=== PATIENT | male | born 1935 | race Caucasian/White ===

== ENCOUNTER 2017-10-08 10:18 | Inpatient (IN) | payer MEDICARE ==
[~2017-10-08] VITALS: Ht 167.6 cm; Wt 60.0 kg
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
--- NOTE | ~2017-10-08 | PN ---
PATIENT:STEPHEN PERDOMO MEDICAL RECORD: [id number] LOCATION:[facility] ADMISSION DATE: 10/08/17 PROGRESS NOTE DATE OF SERVICE: 10/11/2017 SUBJECTIVE: The patient's case was discussed with staff. He has no new complaint. OBJECTIVE: The patient is in good behavioral control with limited insight about his condition. He tolerates his medicines well. ASSESSMENT: No change in diagnoses. PLAN: Brief supportive and educational interventions were made. emt intermediate prognosis is guarded. TRANSINT:[id number] Voice Confirmation ID: [id number] DOCUMENT ID: [id number] XOCHITL MORELAND MD at 1304 CC: [id number] DICTATION DATE: 10/11/17 1224 AUTO DAMAGE ESTIMATOR: 10/11/17 1246 ADM IN [place] [id number] [place] [address]
--- NOTE | ~2017-10-08 | PN ---
PATIENT:STEPHEN PERDOMO MEDICAL RECORD: [id number] LOCATION:[facility] ADMISSION DATE: 10/08/17 PROGRESS NOTE DATE OF SERVICE: 10/16/2017 SUBJECTIVE: The patient's case was discussed with staff. He has no new complaint. OBJECTIVE: The patient denies intent to harm himself or others. He is fairly sedated. ASSESSMENT: No change in diagnoses. PLAN: Current medications have been reviewed and will be maintained. Long-term prognosis is guarded. TRANSINT:[id number] Voice Confirmation ID: [id number] DOCUMENT ID: [id number] XOCHITL MORELAND MD at 1344 CC: [id number] DICTATION DATE: 10/16/17 1430 SUPERVISOR PARK WORKERS: 10/16/17 1449 ADM IN [place] [address] [place] [address]
--- NOTE | ~2017-10-08 | PN ---
PATIENT:STEPHEN PERDOMO MEDICAL RECORD: [id number] LOCATION:[facility] ADMISSION DATE: 10/08/17 PROGRESS NOTE DATE OF SERVICE: 10/10/2017 SUBJECTIVE: The patient's case was discussed with staff. He has no new complaint. OBJECTIVE: The patient was tested by Dr. Christine Feng and scored a 13/30. He has very limited insight about his condition and is clearly quite advanced in his dementia. ASSESSMENT: No change in diagnoses. PLAN: The patient will be started on Aricept at a dose of 5 mg at bedtime. His long-term prognosis is guarded. TRANSINT:[id number] Voice Confirmation ID: [id number] DOCUMENT ID: [id number] XOCHITL MORELAND MD at 1147 CC: [id number] DICTATION DATE: 10/10/17 1510 OPERATIONS SUPPORT PROFESSIONALS: 10/10/17 1523 ADM IN [place] [id number] [place] [address]
--- NOTE | ~2017-10-08 | PN ---
PATIENT:STEPHEN PERDOMO MEDICAL RECORD: [id number] LOCATION:[facility] ADMISSION DATE: 10/08/17 PROGRESS NOTE DATE OF SERVICE: 10/19/2017 SUBJECTIVE: The patient's case was discussed with staff. He has no new complaint. OBJECTIVE: The patient is in good behavioral control with limited insight about his condition. He tolerates his medicines well. He is severely impaired cognitively, but not behaviorally out of control. He does require frequent queuing and redirecting, which he is accepting well. I anticipate he can be transitioned out of the hospital to a facility today and I do not believe he represents an acute danger to himself or others. TRANSINT:[id number] Voice Confirmation ID: [id number] DOCUMENT ID: [id number] XOCHITL MORELAND MD at 0804 CC: [id number] DICTATION DATE: 10/19/17 1417 BOBBIN SORTER: 10/19/17 1430 DIS IN 10/19/17 [place] [id number] [place] [address]
--- NOTE | ~2017-10-08 | PN ---
PATIENT:STEPHEN PERDOMO MEDICAL RECORD: [id number] LOCATION:[facility] ADMISSION DATE: 10/08/17 PROGRESS NOTE DATE OF SERVICE: 10/13/2017 SUBJECTIVE: No new complaint is noted. OBJECTIVE: The patient did receive p.r.n., last time because of agitation. He tends to be worse in the evenings. On exam today, mood is for the most part euthymic. Affect is bland. Speech is somewhat tangential. Content of thought focuses primarily on somatic concerns. Sensorium shows no change. ASSESSMENT: No change in diagnosis. PLAN: 1. Continue current medications. 2. Continue supportive therapy. TRANSINT:[id number] Voice Confirmation ID: [id number] DOCUMENT ID: [id number] LALY AMARAL III, MD at 1341 CC: [id number] DICTATION DATE: 10/13/17 1150 PATIENT CASE MANAGER: 10/13/17 1159 ADM IN [facility] [address] [place] [address]
--- NOTE | ~2017-10-08 | PN ---
PATIENT:STEPHEN PERDOMO MEDICAL RECORD: [id number] LOCATION:[facility]113 ADMISSION DATE: 10/08/17 PROGRESS NOTE DATE OF SERVICE: 10/12/2017 SUBJECTIVE: The patient's case was discussed with staff. He has no new complaint. OBJECTIVE: The patient has been quite agitated and required multiple doses of Haldol and Ativan to calm him. ASSESSMENT: No change in diagnoses. PLAN: The patient is going to be given Geodon on a scheduled basis to assist with his agitation. His prognosis is guarded. TRANSINT:[id number] Voice Confirmation ID: [id number] DOCUMENT ID: [id number] XOCHITL MORELAND MD at 1403 CC: [id number] DICTATION DATE: 10/12/17 1359 DRAPERY ESTIMATOR: 10/12/17 1439 ADM IN [place] [address] [place] [address]
--- NOTE | ~2017-10-08 | PN ---
PATIENT:STEPHEN PERDOMO MEDICAL RECORD: [id number] LOCATION:[facility]113 ADMISSION DATE: 10/08/17 PROGRESS NOTE DATE OF SERVICE: 10/17/2017 SUBJECTIVE: The patient's case was discussed with staff. He has no new complaint. OBJECTIVE: The patient is disorganized with limited insight about his condition. He tolerates his medicines well. ASSESSMENT: No change in diagnoses. PLAN: Current medicines have been reviewed and will be maintained. Long-term prognosis is guarded. TRANSINT:[id number] Voice Confirmation ID: [id number] DOCUMENT ID: [id number] XOCHITL MORELAND MD at 1218 CC: [id number] DICTATION DATE: 10/17/17 1453 PIPING DRAFTER: 10/17/17 1502 ADM IN [place] [id number] [place] [address]
--- NOTE | ~2017-10-08 | PN ---
PATIENT:STEPHEN PERDOMO MEDICAL RECORD: [id number] LOCATION:[facility] ADMISSION DATE: 10/08/17 PROGRESS NOTE DATE OF SERVICE: 10/18/2017 SUBJECTIVE: The patient's case was discussed with staff. He has no new complaint. OBJECTIVE: The patient is in good behavioral control with limited insight about his condition. He is quite impaired cognitively, but has not been aggressive today. ASSESSMENT: No change in diagnoses. PLAN: Current medicines have been reviewed. I am going to prescribe trazodone to assist with his sleep consolidation. His long-term prognosis is guarded. TRANSINT:[id number] Voice Confirmation ID: [id number] DOCUMENT ID: [id number] XOCHITL MORELAND MD at 1341 CC: [id number] DICTATION DATE: 10/18/17 1237 FASHION DIRECTOR PARTY PLAN SALES: 10/18/17 1302 ADM IN [facility] [address] [place] [address]
[2017-10-08 11:18] LABS: APPEARANCE CLEAR (CLEAR); BILIRUBIN NEGATIVE (NEGATIVE); COLOR YELLOW (YELLOW); GLUCOSE NEGATIVE (NEGATIVE); KETONE NEGATIVE (NEGATIVE); NITRITE NEGATIVE (NEGATIVE); PROTEIN NEGATIVE (NEGATIVE); UDS - AMPHET NEGATIVE QUAL (NEGATIVE); UDS - BARB NEGATIVE QUAL (NEGATIVE); UDS - BENZO POSITIVE QUAL (NEGATIVE); UDS - COCAINE NEGATIVE QUAL (NEGATIVE); UDS - OPIATE NEGATIVE QUAL (NEGATIVE); UDS - PCP NEGATIVE QUAL (NEGATIVE); UDS - THC NEGATIVE QUAL (NEGATIVE); UROBILINOGEN NORMAL (NORMAL)
[2017-10-08 11:20] LABS: BASOPHILS 0.7 % (0-2); EOSINOPHILS 0.7 % (0-7); HEMATOCRIT 39.1 % (42.0-54.0); HEMOGLOBIN 12.9 g/dL (13.5-17.5); IMMATURE GRANULOCYTES 0.3 % (0-5); LYMPHOCYTES 20.1 % (15-50); MCH 31.3 pg (26.0-34.0); MCV 94.9 fL (80.0-100.0); MEAN PLATELET VOLUME 9.1 fL (7.4-10.4); MONOCYTES 8.6 % (2-11); NEUTROPHILS 69.6 % (40-80); PLATELET COUNT 260 10x3/uL (130-400); RBC 4.12 10x6/uL (4.20-6.10); RDW 14.6 % (11.5-14.5); WBC 6.9 10x3/uL (4.8-10.8)
[2017-10-08 11:21] LABS: BACTERIA MANY /hpf (NONE SEEN); EPITHELIAL CELLS OCC /hpf (0-5); RED CELLS - URINE 0-5 /hpf (0-5); WHITE CELLS - URINE 0-5 /hpf (0-5)
[2017-10-08 11:42] LABS: ALBUMIN 3.3 g/dL (3.4-5.0); ALKALINE PHOSPHATASE 67 U/L (46-116); ALT (SGPT) 45 U/L (10-68); BILIRUBIN - TOTAL 0.39 mg/dL (0.2-1.3); CALC OSMOLALITY 275 mosm/kg (275-300); CALCIUM 9.5 mg/dL (8.5-10.1); CARBON DIOXIDE 27.3 mmol/L (21.0-32.0); CHLORIDE - SERUM 104 mmol/L (98-107); GLUCOSE 102 mg/dL (74-106); POTASSIUM - SERUM 3.7 mmol/L (3.5-5.1); SODIUM 139 mmol/L (136-145); UREA NITROGEN 8 mg/dL (7-18); eGFR NON AFRICAN AMERICAN 76 mL/min (90-120)
[2017-10-08 11:43] LABS: PRO BNP 71 pg/mL (0-450)
[2017-10-08 11:44] LABS: TROPONIN-I < 0.017 ng/mL (0.000-0.060)
[2017-10-08] MEDS ORDERED: CIPRO500 MG PO (15:38)
[2017-10-08] MEDS ORDERED: SEROQUEL50 MG PO (15:39)
[2017-10-08 18:56] VITALS: BP 152/95
[2017-10-08 22:22] VITALS: BP 138/51; BMI 21.3
[2017-10-09 07:00] VITALS: BP 110/67
[2017-10-09 07:10] LABS: CHOL - HDL RATIO 6.1 ratio (2.3-4.9); LDL-HDL RATIO 4.2 ratio (1.5-3.5); THYROID STIMULATING HORMONE 0.55 uIU/mL (0.36-3.74)
[2017-10-09 14:24] VITALS: BMI 21.3
[2017-10-09 20:19] VITALS: BP 109/65
[2017-10-10 07:40] VITALS: BP 126/75
[2017-10-10 08:22] LABS: VITAMIN D 25 HYDROXY 17.9 ng/mL (30.0-100.0)
[2017-10-10 09:19] LABS: FOLATE (FOLIC ACID) - SERUM 13.1 ng/mL (>3.0)
[2017-10-10 13:35] VITALS: Ht 167.6 cm; Wt 60.0 kg
[2017-10-10 19:30] VITALS: BP 142/78
[2017-10-11 07:55] VITALS: BP 124/82
[2017-10-11 20:48] VITALS: BP 161/84
[2017-10-12 08:11] VITALS: BP 103/62
[2017-10-13 10:09] VITALS: BP 103/63
[2017-10-13 21:20] VITALS: BP 128/80
[2017-10-14 12:49] VITALS: BP 111/75
[2017-10-14 21:34] VITALS: BP 128/88
[2017-10-15 07:00] VITALS: BP 134/80
[2017-10-15 21:12] VITALS: BP 145/71
[2017-10-16 07:28] VITALS: BP 147/84
[2017-10-16 21:22] VITALS: BP 118/70
[2017-10-17 09:45] VITALS: BP 102/61
[2017-10-17 19:41] VITALS: BP 155/87
[2017-10-18 08:54] VITALS: BP 100/67
[2017-10-18] MEDS ORDERED: ARICEPT5 MG PO (19:11)
[2017-10-18] MEDS ORDERED: FLOMAX0.4 MG PO (19:11)
[2017-10-18] MEDS ORDERED: PERPHENAZINE2 MG PO (19:14)
[2017-10-18] MEDS ORDERED: VITAMIN D5000 UNIT PO (19:14)
[2017-10-18] MEDS ORDERED: TRAZODONE HCL50 MG PO (19:14)
[2017-10-18] MEDS ORDERED: VITAMIN B-121000 MCG PO (19:15)
[2017-10-18 20:50] VITALS: BP 162/60
[2017-10-19 08:38] VITALS: BP 133/79
== END 2017-10-19 14:10 | DRG 56 ==
LOC: D.ER 10:18 → D.PSYCH 13:50
PROVIDERS: Family Medicine; Psychiatry & Neurology Psychiatry
DX: I69.819 Unspecified symptoms and signs involving cognitive functions following other cerebrovascular disease (principal); G93.6 Cerebral edema; I69.954 Hemiplegia and hemiparesis following unspecified cerebrovascular disease affecting left non-dominant side; N39.0 Urinary tract infection, site not specified; F01.50 Vascular dementia, unspecified severity, without behavioral disturbance, psychotic disturbance, mood disturbance, and anxiety; N40.0 Benign prostatic hyperplasia without lower urinary tract symptoms; G47.00 Insomnia, unspecified; E78.5 Hyperlipidemia, unspecified; E55.9 Vitamin D deficiency, unspecified

== ENCOUNTER 2017-10-25 00:03 | Emergency (ER) | payer MEDICARE ==
[~2017-10-25 00:03] MED LIST: ARICEPT5 MG PO; CIPRO500 MG PO; FLOMAX0.4 MG PO; PERPHENAZINE2 MG PO; SEROQUEL50 MG PO; TRAZODONE HCL50 MG PO; VITAMIN B-121000 MCG PO; VITAMIN D5000 UNIT PO
[2017-10-25 01:39] LABS: BASOPHILS 0.7 % (0-2); EOSINOPHILS 1.3 % (0-7); HEMATOCRIT 35.7 % (42.0-54.0); HEMOGLOBIN 11.7 g/dL (13.5-17.5); IMMATURE GRANULOCYTES 0.3 % (0-5); LYMPHOCYTES 28.3 % (15-50); MCH 31.1 pg (26.0-34.0); MCHC 32.8 g/dL (31.0-37.0); MCV 94.9 fL (80.0-100.0); MEAN PLATELET VOLUME 9.1 fL (7.4-10.4); MONOCYTES 8.4 % (2-11); PLATELET COUNT 306 10x3/uL (130-400); RBC 3.76 10x6/uL (4.20-6.10); RDW 13.9 % (11.5-14.5)
[2017-10-25 01:45] LABS: UDS - AMPHET NEGATIVE QUAL (NEGATIVE); UDS - BARB NEGATIVE QUAL (NEGATIVE); UDS - BENZO NEGATIVE QUAL (NEGATIVE); UDS - COCAINE NEGATIVE QUAL (NEGATIVE); UDS - OPIATE NEGATIVE QUAL (NEGATIVE); UDS - PCP NEGATIVE QUAL (NEGATIVE); UDS - THC NEGATIVE QUAL (NEGATIVE)
[2017-10-25 01:55] LABS: APTT 28.2 SECONDS (22.8-39.4); INR 1.03 (0.85-1.17); PROTIME 13.1 SECONDS (11.6-15.0)
[2017-10-25 01:56] LABS: APPEARANCE CLEAR (CLEAR); BILIRUBIN NEGATIVE (NEGATIVE); COLOR YELLOW (YELLOW); GLUCOSE NEGATIVE (NEGATIVE); KETONE NEGATIVE (NEGATIVE); NITRITE NEGATIVE (NEGATIVE); PROTEIN NEGATIVE (NEGATIVE); SPECIFIC GRAVITY 1.015 (1.005-1.020); UROBILINOGEN NORMAL (NORMAL)
[2017-10-25 01:57] LABS: D-DIMER-QUANTITATIVE 0.81 ug/mLFEU (0.20-0.54)
[2017-10-25 01:58] LABS: BACTERIA FEW /hpf (NONE SEEN); EPITHELIAL CELLS 0-5 /hpf (0-5); RED CELLS - URINE 0-5 /hpf (0-5); WHITE CELLS - URINE 0-5 /hpf (0-5)
[2017-10-25 02:04] LABS: ALBUMIN 2.9 g/dL (3.4-5.0); ALKALINE PHOSPHATASE 54 U/L (46-116); ALT (SGPT) 19 U/L (10-68); BILIRUBIN - TOTAL 0.32 mg/dL (0.2-1.3); CALC OSMOLALITY 278 mosm/kg (275-300); CALCIUM 8.7 mg/dL (8.5-10.1); CARBON DIOXIDE 28.8 mmol/L (21.0-32.0); CHLORIDE - SERUM 106 mmol/L (98-107); CREATININE - SERUM 0.8 mg/dL (0.6-1.3); GLUCOSE 89 mg/dL (74-106); POTASSIUM - SERUM 3.3 mmol/L (3.5-5.1); PROTEIN - SERUM 6.3 g/dL (6.4-8.2); SODIUM 141 mmol/L (136-145); UREA NITROGEN 11 mg/dL (7-18); eGFR NON AFRICAN AMERICAN > 90 mL/min (90-120)
[2017-10-25 02:15] LABS: CKMB 2.3 U/L (0.0-3.6); CREATINE KINASE 135 UL (21-232)
[2017-10-25 02:19] LABS: ACETAMINOPHEN < 0.2 ug/mL (10.0-30.0); TROPONIN-I < 0.017 ng/mL (0.000-0.060)
[2017-10-25] MEDS ORDERED: BIOFREEZE118 ML TOPICAL (06:34)
[2017-10-25] MEDS ORDERED: MELATONIN 3 MG1 TAB PO (06:37)
[2017-10-25] MEDS ORDERED: ACETAMINOPHEN325 MG PO (06:38)
[2017-10-25] MEDS ORDERED: CELEXA10 MG PO (06:39)
== END 2017-10-25 05:24 ==
LOC: D.ER 00:03
PROVIDERS: Family Medicine
DX: F91.9 Conduct disorder, unspecified (principal); Z86.73 Personal history of transient ischemic attack (TIA), and cerebral infarction without residual deficits; F03.90 Unspecified dementia, unspecified severity, without behavioral disturbance, psychotic disturbance, mood disturbance, and anxiety

== ENCOUNTER 2017-10-25 05:14 | Inpatient (IN) | payer MEDICARE, OTHER ==
[~2017-10-25] VITALS: Ht 160 cm; Wt 56.9 kg
--- NOTE | ~2017-10-25 | PN ---
PATIENT:STEPHEN PERDOMO MEDICAL RECORD: [id number] LOCATION:[facility] ADMISSION DATE: 10/25/17 PROGRESS NOTE DATE OF SERVICE: 11/06/2017 SUBJECTIVE: No new complaint. OBJECTIVE: Staff note, the patient has been somewhat more restless and attention seeking, but not particularly agitated. He does accept redirection for the most part. On exam, mood is slightly elevated. Affect is shallow. Speech is tangential. Content of thought is negative for overt psychosis. Sensorium unchanged. ASSESSMENT: No change in diagnoses. PLAN: 1. Maintain current medication. 2. Continue supportive therapy. TRANSINT:[id number] Voice Confirmation ID: [id number] DOCUMENT ID: [id number] LALY AMARAL III, MD at 0644 CC: [id number] DICTATION DATE: 11/06/171120 CHILD WELFARE SOCIAL WORKER: 11/06/17 1242 ADM IN [place] [address] [place] [id number]
--- NOTE | ~2017-10-25 | PN ---
PATIENT:STEPHEN PERDOMO MEDICAL RECORD: [id number] LOCATION:[facility] Ye[facility]112 ADMISSION DATE: 10/25/17 PROGRESS NOTE DATE OF SERVICE: 11/01/2017 SUBJECTIVE: No new complaint. OBJECTIVE: The patient has done well over the last 24 hours. Discharge plans will be discussed by telephone with his , Jamee Perdomo. The has elected to have him remain in the group home. On exam, mood is pleasant. Affect is bland. Speech is somewhat tangential. Content of thought negative for overt psychosis. Sensorium shows no change. ASSESSMENT: No change in diagnosis. PLAN: 1. Continue current medication. 2. Continue supportive therapy. TRANSINT:[id number] Voice Confirmation ID: [id number] DOCUMENT ID: [id number] LALY AMARAL III, MD at 2052 CC: [id number] DICTATION DATE: 11/01/17 1054 NEONATAL INTENSIVE CARE UNIT NURSE: 11/01/17 1126 ADM IN [place] [address] [place] [address]
--- NOTE | ~2017-10-25 | PN ---
PATIENT:STEPHEN PERDOMO MEDICAL RECORD: [id number] LOCATION:[facility] ADMISSION DATE: 10/25/17 PROGRESS NOTE DATE OF SERVICE: 10/26/2017 SUBJECTIVE: The patient complains of being cold. OBJECTIVE: Staff reports the patient did sleep 8 hours. He did become quite restless last night and did receive p.r.n. medication this morning. He is much calmer. On exam, mood is euthymic. Affect is constricted. Speech is rather terse. Content of thought shows nonspecific paranoid ideation. Sensorium shows no change. ASSESSMENT: No change in diagnosis. PLAN: 1. Continue current medication. 2. Continue supportive therapy. TRANSINT:[id number] Voice Confirmation ID: [id number] DOCUMENT ID: [id number] LALY AMARAL III, MD at 0758 CC: [id number] DICTATION DATE: 10/26/17 1141 THREAD DRESSER: 10/26/17 1204 ADM IN [place] [address] [place] [address]
--- NOTE | ~2017-10-25 | PN ---
PATIENT:STEPHEN PERDOMO MEDICAL RECORD: [id number] LOCATION:[facility] ADMISSION DATE: 10/25/17 PROGRESS NOTE DATE OF SERVICE: 10/27/2017 SUBJECTIVE: No new complaint. OBJECTIVE: The patient has not exhibited any aggression over the last 24 hours. He is taking his medications as they are given to him. He remains quite confused. On exam, mood is euthymic. Affect is very shallow. Speech is tangential. Content of thought is negative for overt psychosis. Sensorium shows no change. ASSESSMENT: No change in diagnoses. PLAN: 1. Maintain current medication. 2. Continue supportive therapy. TRANSINT:[id number] Voice Confirmation ID: [id number] DOCUMENT ID: [id number] LALY AMARAL III, MD at 0703 CC: [id number] DICTATION DATE: 10/27/17 1001 LENS DOTTER: 10/27/17 1110 ADM IN [place] [id number] [place] [id number]
--- NOTE | ~2017-10-25 | PN ---
PATIENT:STEPHEN PERDOMO MEDICAL RECORD: [id number] LOCATION:[facility] ADMISSION DATE: 10/25/17 PROGRESS NOTE DATE OF SERVICE: 11/03/2017 SUBJECTIVE: The patient's case was discussed with staff. He has no new complaint. OBJECTIVE: The patient is in good behavioral control with limited insight about his condition. He is, however, severely impaired cognitively. He clearly is in need of 98-eorv-e-day supervision. ASSESSMENT: No change in diagnoses. PLAN: Current medicines have been reviewed and will be maintained. Long-term prognosis is guarded. TRANSINT:[id number] Voice Confirmation ID: [id number] DOCUMENT ID: [id number] XOCHITL MORELAND MD at 1130 CC: [id number] DICTATION DATE: 11/03/17 1441 RAYMOND MILL OPERATOR: 11/03/17 1550 ADM IN [place] [id number] [place] [address]
--- NOTE | ~2017-10-25 | PN ---
PATIENT:STEPHEN PERDOMO MEDICAL RECORD: [id number] LOCATION:[facility]112 ADMISSION DATE: 10/25/17 PROGRESS NOTE DATE OF SERVICE: 11/07/2017 SUBJECTIVE: No new complaint. OBJECTIVE: The patient remains somewhat intrusive and labile, but is more easily redirected. On exam, mood is slightly irritable. Affect is brittle. Speech is tangential. Content of thought focuses on both somatic concerns and nonspecific paranoid ideation. Sensorium shows no change. ASSESSMENT: No change in diagnosis. PLAN: 1. Continue current medication. 2. Continue supportive therapy. TRANSINT:[id number] Voice Confirmation ID: [id number] DOCUMENT ID: [id number] LALY AMARAL III, MD at 0825 CC: [id number] DICTATION DATE: 11/07/17 1143 HEAD OF PRODUCT: 11/07/17 1420 ADM IN [place] [address] [place] [address]
--- NOTE | ~2017-10-25 | DS ---
PATIENT:STEPHEN PERDOMO :39 MEDICAL RECORD: [id number] DISCHARGE SUMMARY ADMISSION DATE: 10/25/17 DISCHARGE DATE: 11/10/17 DATE OF ADMISSION: 10/25/2017. DATE OF DISCHARGE: 11/10/2017. HISTORY: Second recent admission to [facility] for this 82-year-old white male. The patient has a previous diagnosis of vascular dementia. He has exhibited psychotic symptoms in the past. His reason for readmission was combativeness and agitation. The patient had been taken off of his mood stabilizing and neuroleptic medications at the senior living and his behavior quickly deteriorated. For further details, please see previously dictated history. COURSE IN THE HOSPITAL: The patient was seen in consultation by Dr. Bishop. She noted the presence of cerebrovascular disease, hyperlipidemia, benign prostatic hyperplasia. From a medication standpoint, the patient was promptly started back on his mood stabilizing medications. He was placed back on Geodon 20 mg b.i.d. with very good results. He was maintained on Aricept 5 mg at bedtime, trazodone 50 mg at bedtime for sleep. The patient showed a good resolution of his agitation. Staff had considerable contact with the patient's spouse about the possibility of his returning home, but the spouse ultimately realized that she would not be able to care for her at home due to the potential progression of his illness and further behavioral change in the future. The patient was transferred back to the senior living in stable condition. FINAL DIAGNOSES: AXIS I: Vascular dementia with behavioral disturbance -- improving. AXIS II: No diagnosis. AXIS III: Status post cerebrovascular accident, benign prostatic hyperplasia, vitamin D deficiency. AXIS IV: Moderate. AXIS V: 40. PLAN: 1. The patient is discharged on current medication. 2. Diet and activities as tolerated. 3. Follow up through primary care physician assigned to the senior living. TRANSINT:[id number] Voice Confirmation ID: [id number] DOCUMENT ID: [id number] LALY AMARAL III, MD at 0841 CC: [id number] DICTATION DATE: 11/10/17 1020 JOINERY SETTER OUT: 11/10/17 1217 DIS IN 11/10/17 [place] [address] [place] [address]
--- NOTE | ~2017-10-25 | PN ---
PATIENT:STEPHEN PERDOMO MEDICAL RECORD: [id number] LOCATION:[facility] ADMISSION DATE: 10/25/17 PROGRESS NOTE DATE OF SERVICE: 11/02/2017 SUBJECTIVE: No new complaint. OBJECTIVE: The patient has done fairly well over the last 24 hours. Telephone conversation was held with the patient's yesterday regarding aftercare. The prefers to have the patient remain in the long term as she does not feel that she can manage him at home. The patient's current course of treatment and prognosis were discussed with the . On exam, mood is euthymic. Affect is bland. Speech is somewhat tangential. Content of thought shows no overt psychosis. Sensorium shows no change. ASSESSMENT: No change in diagnosis. PLAN: 1. Maintain current medication. 2. Continue supportive therapy. TRANSINT:[id number] Voice Confirmation ID: [id number] DOCUMENT ID: [id number] LALY AMARAL III, MD at 1013 CC: [id number] DICTATION DATE: 11/02/17 1214 INSECTICIDE SUPERVISOR: 11/02/17 1247 ADM IN [facility] [address] [place] [id number]
--- NOTE | ~2017-10-25 | PN ---
PATIENT:STEPHEN PERDOMO MEDICAL RECORD: [id number] LOCATION:[facility] ADMISSION DATE: 10/25/17 PROGRESS NOTE DATE OF SERVICE: 10/31/2017 SUBJECTIVE: The patient states he is feeling much better. OBJECTIVE: The patient is indeed better. He is ambulatory about the unit. He is showing much clearer sensorium. He addresses staff members by name and engages in meaningful conversation. Staff has discussed the strong possibility of recommending the patient return home provided that there is home health assistance and good instruction for the regarding medication administration. On exam, mood is pleasant and euthymic. Affect is bland. Speech is fairly fluent. Content of thought shows no evidence of psychosis. Sensorium shows improvement. The patient is oriented to person and to place. He shows improvement in concentration and short-term recall as well. ASSESSMENT: No change in diagnosis. PLAN: 1. Continue current treatment plan. 2. Continue supportive therapy. TRANSINT:[id number] Voice Confirmation ID: [id number] DOCUMENT ID: [id number] LALY AMARAL III, MD at 1017 CC: [id number] DICTATION DATE: 10/31/17 1032 MANUFACTURING MANAGER: 10/31/17 1242 ADM IN [facility] [address] [place] [address]
--- NOTE | ~2017-10-25 | PN ---
PATIENT:STEPHEN PERDOMO MEDICAL RECORD: [id number] LOCATION:[facility] Melvin ADMISSION DATE: 10/25/17 PROGRESS NOTE DATE OF SERVICE: 11/04/2017 SUBJECTIVE: The patient's case was discussed with staff. He has no new complaint. OBJECTIVE: The patient is in good behavioral control with limited insight about his condition. He tolerates his medicines well. ASSESSMENT: No change in diagnoses. PLAN: Current medicines have been reviewed and will be maintained. Long-term prognosis is guarded. Supportive and educational interventions were made. I would anticipate the patient could be transitioned out of the hospital soon if this level of improvement is maintained. TRANSINT:[id number] Voice Confirmation ID: [id number] DOCUMENT ID: [id number] XOCHITL MORELAND MD at 1001 CC: [id number] DICTATION DATE: 11/04/17 1149 TRACER POWDER BLENDER: 11/04/17 1202 ADM IN [place] [address] [place] [address]
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
--- NOTE | ~2017-10-25 | PN ---
PATIENT:STEPHEN PERDOMO MEDICAL RECORD: [id number] LOCATION:[facility] Mel[facility] ADMISSION DATE: 10/25/17 PROGRESS NOTE DATE OF SERVICE: 11/09/2017 SUBJECTIVE: No new complaints. OBJECTIVE: The patient has been doing well according to staff over the last 24 hours. No further agitation or aggressiveness. He is tolerating all medications well. On exam, mood is slightly elevated. Affect is somewhat child-like. Speech is tangential. Content of thought is negative for overt psychosis. Sensorium unchanged. ASSESSMENT: No change in diagnosis. PLAN: 1. Continue current treatment plan. 2. Anticipate discharge tomorrow. TRANSINT:[id number] Voice Confirmation ID: [id number] DOCUMENT ID: [id number] LALY AMARAL III, MD at 2143 CC: [id number] DICTATION DATE: 11/09/17 1034 MEDICAL RECORDS COORDINATOR: 11/09/17 1227 ADM IN [facility] [address] [place] [address]
--- NOTE | ~2017-10-25 | PN ---
PATIENT:STEPHEN PERDOMO MEDICAL RECORD: [id number] LOCATION:[facility] ADMISSION DATE: 10/25/17 PROGRESS NOTE DATE OF SERVICE: 11/05/2017 SUBJECTIVE: The patient's case was discussed with staff. He has no new complaint. OBJECTIVE: The patient denies intent to harm himself or others. He generally tolerates his medicines well. ASSESSMENT: No change in diagnoses. PLAN: The patient clearly needs 24-hour a day supervision. I anticipate he can be transitioned out of the hospital soon if this level of improvement continues. TRANSINT:[id number] Voice Confirmation ID: [id number] DOCUMENT ID: [id number] XOCHITL MORELAND MD at 1409 CC: [id number] DICTATION DATE: 11/05/17 1029 NATIONAL SALES TRAINER: 11/05/17 1656 ADM IN [facility] [address] [place] [address]
--- NOTE | ~2017-10-25 | PN ---
PATIENT:STPEHEN PERDOMO MEDICAL RECORD: [id number] LOCATION:[facility] ADMISSION DATE: 10/25/17 PROGRESS NOTE DATE OF SERVICE: 10/30/2017 SUBJECTIVE: No new complaint. OBJECTIVE: The patient has shown considerable improvement. He is tolerating medication quite well. He has been cooperative with staff. On exam, mood is euthymic. Affect is bland. Speech is somewhat tangential. Content of thought is negative for overt psychosis. Sensorium shows no change. ASSESSMENT: No change in diagnosis. PLAN: 1. Continue current medication. 2. Continue supportive therapy. TRANSINT:[id number] Voice Confirmation ID: [id number] DOCUMENT ID: [id number] LALY AMARAL III, MD at 0909 CC: [id number] DICTATION DATE: 10/30/17 1055 USED CAR LOT PORTER: 10/30/17 1300 ADM IN [place] [id number] [place] [id number]
--- NOTE | ~2017-10-25 | PN ---
PATIENT:STEPHEN PERDOMO MEDICAL RECORD: [id number] LOCATION:[facility] ADMISSION DATE: 10/25/17 PROGRESS NOTE DATE OF SERVICE: 11/08/2017 SUBJECTIVE: No new complaint is voiced. OBJECTIVE: The patient has done fairly well. He is oriented to person and place for the most part; however, he does show episodes of confusion. He has occasional lability, but over the last 24 hours has done well. On exam, mood is for the most part euthymic. Affect is bland. Speech is tangential. Content of thought is negative for overt psychosis. Sensorium shows no change. ASSESSMENT: No change in diagnoses. PLAN: 1. Continue current medication. 2. Continue supportive therapy. TRANSINT:[id number] Voice Confirmation ID: [id number] DOCUMENT ID: [id number] LALY AMARAL III, MD at 0736 CC: [id number] DICTATION DATE: 11/08/17 0956 MANUFACTURING PLANT CONTROLLER: 11/08/17 1340 ADM IN [place] [id number] [place] [id number]
[2017-10-25] MEDS ORDERED: BIOFREEZE118 ML TOPICAL (06:34)
[2017-10-25] MEDS ORDERED: MELATONIN 3 MG1 TAB PO (06:37)
[2017-10-25] MEDS ORDERED: ACETAMINOPHEN325 MG PO (06:38)
[2017-10-25] MEDS ORDERED: CELEXA10 MG PO (06:39)
[2017-10-25 07:14] LABS: LDL-HDL RATIO 3.3 ratio (1.5-3.5); THYROID STIMULATING HORMONE 1.26 uIU/mL (0.36-3.74)
[2017-10-25 07:27] VITALS: BP 138/70
[2017-10-25 07:29] LABS: BASOPHILS 1.1 % (0-2); EOSINOPHILS 1.5 % (0-7); HEMATOCRIT 38.4 % (42.0-54.0); HEMOGLOBIN 12.8 g/dL (13.5-17.5); IMMATURE GRANULOCYTES 0.2 % (0-5); LYMPHOCYTES 27.9 % (15-50); MCH 31.4 pg (26.0-34.0); MCHC 33.3 g/dL (31.0-37.0); MCV 94.1 fL (80.0-100.0); MEAN PLATELET VOLUME 9.3 fL (7.4-10.4); MONOCYTES 8.6 % (2-11); NEUTROPHILS 60.7 % (40-80); PLATELET COUNT 352 10x3/uL (130-400); RBC 4.08 10x6/uL (4.20-6.10); RDW 13.8 % (11.5-14.5); WBC 5.4 10x3/uL (4.8-10.8)
[2017-10-25 15:11] VITALS: BP 138/70
[2017-10-25 21:29] VITALS: BP 146/89
[2017-10-26 07:29] LABS: RAPID PLASMA REAGIN Non Reactive (Non Reactive); VITAMIN D 25 HYDROXY 36.1 ng/mL (30.0-100.0)
[2017-10-26 10:04] VITALS: BP 130/60
[2017-10-26 11:19] LABS: FOLATE (FOLIC ACID) - SERUM 13.8 ng/mL (>3.0)
[2017-10-26 20:52] VITALS: BP 134/64
[2017-10-27 07:58] VITALS: BP 125/75
[2017-10-27 13:35] LABS: APPEARANCE HAZY (CLEAR); BILIRUBIN NEGATIVE (NEGATIVE); COLOR YELLOW (YELLOW); GLUCOSE NEGATIVE (NEGATIVE); KETONE NEGATIVE (NEGATIVE); NITRITE NEGATIVE (NEGATIVE); PROTEIN NEGATIVE (NEGATIVE); UROBILINOGEN NORMAL (NORMAL)
[2017-10-27 20:32] VITALS: BP 152/85
[2017-10-28 07:44] VITALS: BP 132/79
[2017-10-28 19:21] VITALS: BP 138/72
[2017-10-29 07:00] VITALS: BP 139/78
[2017-10-29 19:04] VITALS: BP 106/65
[2017-10-30 07:00] VITALS: BP 106/72
[2017-10-30 19:25] VITALS: BP 134/81
[2017-10-31 07:59] VITALS: BP 130/76
[2017-10-31 08:31] VITALS: Ht 160 cm; Wt 56.9 kg
[2017-10-31 22:00] VITALS: BP 128/72
[2017-11-01 08:17] VITALS: BP 119/67
[2017-11-01 19:38] VITALS: BP 105/61
[2017-11-02 08:50] VITALS: BP 114/76
[2017-11-02 19:41] VITALS: BP 138/77
[2017-11-03 08:47] VITALS: BP 126/76
[2017-11-03 19:17] VITALS: BP 142/66
[2017-11-04 07:27] VITALS: BP 126/77
[2017-11-04 19:40] VITALS: BP 131/70
[2017-11-05 07:00] VITALS: BP 108/45
[2017-11-05 20:25] VITALS: BP 141/78
[2017-11-06 08:30] VITALS: BP 143/88
[2017-11-06 21:02] VITALS: BP 123/70
[2017-11-07 07:46] VITALS: BP 123/79
[2017-11-07 20:19] VITALS: BP 136/86
[2017-11-08 07:59] VITALS: BP 118/79
[2017-11-08 19:22] VITALS: BP 140/80
[2017-11-09 08:22] VITALS: BP 106/75
[2017-11-09] MEDS ORDERED: GEODON20 MG PO (10:32)
[2017-11-09] MEDS ORDERED: PEPCID20 MG PO (10:32)
[2017-11-09 19:54] VITALS: BP 150/81
[2017-11-10 08:02] VITALS: BP 120/76
== END 2017-11-10 13:30 | DRG 57 ==
LOC: D.PSYCH 05:14
PROVIDERS: Psychiatry & Neurology Psychiatry
DX: I69.318 Other symptoms and signs involving cognitive functions following cerebral infarction (principal); F01.51 Vascular dementia, unspecified severity, with behavioral disturbance; N40.0 Benign prostatic hyperplasia without lower urinary tract symptoms; E55.9 Vitamin D deficiency, unspecified; G47.00 Insomnia, unspecified; E78.5 Hyperlipidemia, unspecified; R10.9 Unspecified abdominal pain

== ENCOUNTER 2017-11-29 06:02 | Emergency (ER) | payer MEDICARE, OTHER ==
[2017-10-31 08:31] VITALS: BMI 22.2
[~2017-11-29 06:02] MED LIST changes: +ACETAMINOPHEN325 MG PO; +BIOFREEZE118 ML TOPICAL; +CELEXA10 MG PO; +GEODON20 MG PO; +MELATONIN 3 MG1 TAB PO; +PEPCID20 MG PO
== END 2017-11-29 08:56 | disposition home or self-care (01) ==
LOC: D.ER 06:02
DX: S00.81XA Abrasion of other part of head, initial encounter (principal); W22.8XXA Striking against or struck by other objects, initial encounter; Y93.89 Activity, other specified; Y92.019 Unspecified place in single-family (private) house as the place of occurrence of the external cause; Z86.73 Personal history of transient ischemic attack (TIA), and cerebral infarction without residual deficits

== ENCOUNTER 2018-04-19 20:53 | Inpatient (IN) | payer MEDICARE, OTHER ==
[~2018-04-19] VITALS: Ht 160 cm; Wt 56.7 kg
--- NOTE | ~2018-04-19 | PN ---
PATIENT:STEPHEN PERDOMO MEDICAL RECORD: [id number] LOCATION:[facility] ADMISSION DATE: 04/19/18 PROGRESS NOTE DATE OF SERVICE: 05/01/2018 SUBJECTIVE: The patient's case was discussed with staff. He has no new complaint. OBJECTIVE: The patient is in good behavioral control with limited insight about his condition. He does tolerate his medicines well. ASSESSMENT: No change in diagnoses. PLAN: The patient will be transitioned out of the hospital tomorrow. Followup will be with his primary care skilled nursing physician. TRANSINT:[id number] Voice Confirmation ID: [id number] DOCUMENT ID: [id number] XOCHITL MORELAND MD at 0827 CC: [id number] DICTATION DATE: 05/01/18 1439 CIRCULATION ASSISTANT: 05/01/18 1447 ADM IN [place] [id number] [place] [address]
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
--- NOTE | ~2018-04-19 | PN ---
PATIENT:STEPHEN PERDOMO MEDICAL RECORD: [id number] LOCATION:[facility] ADMISSION DATE: 04/19/18 PROGRESS NOTE DATE OF SERVICE: 04/24/2018 SUBJECTIVE: The patient's case was discussed with staff. He has no new complaint. OBJECTIVE: The patient is sleeping and eating reasonably well. He often becomes agitated, but has not been openly aggressive with the staff. He has very limited insight about his condition. ASSESSMENT: No change in diagnoses. PLAN: Current medicines have been reviewed and will be maintained. His long-term prognosis is guarded. TRANSINT:[id number] Voice Confirmation ID: [id number] DOCUMENT ID: [id number] XOCHITL MORELAND MD at 1419 CC: [id number] DICTATION DATE: 04/24/18 1458 FRAME TENDER: 04/24/18 1557 ADM IN [place] [id number] [place] [address]
--- NOTE | ~2018-04-19 | PN ---
PATIENT:STEPHEN PERDOMO MEDICAL RECORD: [id number] LOCATION:[facility] ADMISSION DATE: 04/19/18 PROGRESS NOTE DATE OF SERVICE: 04/23/2018 SUBJECTIVE: The patient's case was discussed with staff. He has no new complaint. OBJECTIVE: The patient is in good behavioral control with limited insight about his condition. He does tolerate his medicines well. Eye contact is fair. ASSESSMENT: No change in diagnoses. PLAN: Current medicines have been reviewed and will be maintained. Brief supportive and educational interventions were made. TRANSINT:[id number] Voice Confirmation ID: [id number] DOCUMENT ID: [id number] XOCHITL MORELAND MD at 1416 CC: [id number] DICTATION DATE: 04/23/18 1641 DIRECTOR PROCESS: 04/23/18 1735 ADM IN [facility] [address] [place] [address]
--- NOTE | ~2018-04-19 | PN ---
PATIENT:STEPHEN PERDOMO MEDICAL RECORD: [id number] LOCATION:[facility] ADMISSION DATE: 04/19/18 PROGRESS NOTE DATE OF SERVICE: 04/25/2018 SUBJECTIVE: The patient's case was discussed with staff. He has no new complaint. OBJECTIVE: The patient denies intent to harm himself or others. He generally tolerates his medicines well. ASSESSMENT: No change in diagnoses. PLAN: Supportive and educational interventions were made. Long-term prognosis is guarded. TRANSINT:[id number] Voice Confirmation ID: [id number] DOCUMENT ID: [id number] XOCHITL MORELAND MD at 1340 CC: [id number] DICTATION DATE: 04/25/18 1457 STATUS CONTROLLER: 04/25/18 1548 ADM IN [place] [id number] [place] [address]
--- NOTE | ~2018-04-19 | PN ---
PATIENT:STEPHEN PERDOMO MEDICAL RECORD: [id number] LOCATION:[facility] ADMISSION DATE: 04/19/18 PROGRESS NOTE DATE OF SERVICE: 04/29/2018 SUBJECTIVE: The patient's case was discussed with staff. He has no new complaint. OBJECTIVE: The patient is in good behavioral control with limited insight about his condition. He has not been aggressive. ASSESSMENT: No change in diagnoses. PLAN: Supportive and educational interventions were made. Long-term prognosis is guarded. TRANSINT:[id number] Voice Confirmation ID: [id number] DOCUMENT ID: [id number] XOCHITL MORELAND MD at 1426 CC: [id number] DICTATION DATE: 04/29/18 1232 ECONOMIC RESEARCH ANALYST: 04/29/18 1314 ADM IN [place] [id number] [place] [address]
--- NOTE | ~2018-04-19 | PN ---
PATIENT:STEPHEN PERDOMO MEDICAL RECORD: [id number] LOCATION:[facility] ADMISSION DATE: 04/19/18 PROGRESS NOTE DATE OF SERVICE: 05/02/2018 SUBJECTIVE: The patient's case was discussed with staff. He has no new complaint. OBJECTIVE: The patient is in good behavioral control with limited insight about his condition. He generally tolerates his medicines well. ASSESSMENT: No change in diagnoses. PLAN: Supportive and educational interventions were made. The patient is going to be transitioned back to the care home today. I see no issues or problems with that. TRANSINT:[id number] Voice Confirmation ID: [id number] DOCUMENT ID: [id number] XOCHITL MORELAND MD at 1127 CC: [id number] DICTATION DATE: 05/02/18 1042 LOCKSTITCH SLEEVE MAKER: 05/02/18 1130 DIS IN 05/02/18 [place] [id number] [place] [address]
--- NOTE | ~2018-04-19 | PN ---
PATIENT:STEPHEN PERDOMO MEDICAL RECORD: [id number] LOCATION:[facility] ADMISSION DATE: 04/19/18 PROGRESS NOTE DATE OF SERVICE: 04/26/2018 SUBJECTIVE: The patient's case was discussed with staff. He has no new complaint. OBJECTIVE: The patient is in good behavioral control with limited insight about his condition. He does tolerate his medicines well. ASSESSMENT: No change in diagnoses. PLAN: The patient's behavior has been reasonably good. He has been significantly confused but relatively easily redirected. I have reviewed his current medications and will maintain them as they are. TRANSINT:[id number] Voice Confirmation ID: [id number] DOCUMENT ID: [id number] XOCHITL MORELAND MD at 1406 CC: [id number] DICTATION DATE: 04/26/18 1457 UNDER TRIMMER: 04/26/18 1506 ADM IN [facility] [address] [place] [id number]
--- NOTE | ~2018-04-19 | PN ---
PATIENT:STEPHEN PERDOMO MEDICAL RECORD: [id number] LOCATION:[facility] ADMISSION DATE: 04/19/18 PROGRESS NOTE DATE OF SERVICE: 04/30/2018 SUBJECTIVE: The patient's case was discussed with staff. He has no new complaint. OBJECTIVE: The patient is in good behavioral control with limited insight about his condition. He generally tolerates his medicines well. ASSESSMENT: No change in diagnoses. PLAN: Supportive and educational interventions were made. Long-term prognosis is guarded. I anticipate he can be transitioned out of the hospital soon. TRANSINT:[id number] Voice Confirmation ID: [id number] DOCUMENT ID: [id number] XOCHITL MORELAND MD at 1354 CC: [id number] DICTATION DATE: 04/30/18 1510 FIRE MEDIC: 04/30/18 1537 ADM IN [facility] [address] [place] [address]
--- NOTE | ~2018-04-19 | PN ---
PATIENT:STEPHEN PERDOMO MEDICAL RECORD: [id number] LOCATION:[facility] ADMISSION DATE: 04/19/18 PROGRESS NOTE DATE OF SERVICE: 04/27/2018 SUBJECTIVE: The patient's case was discussed with staff. He has no new complaint. OBJECTIVE: The patient is eating and sleeping well. He does become a little agitated, but is easily redirected. I am not sure that in a less supportive or her therapeutic environment that it might not result in some agitation or combativeness as it has prior to him being admitted, but at least at this point he is not showing any such behaviors. ASSESSMENT: No change in diagnoses. PLAN: Supportive and educational interventions were made. Long-term prognosis is guarded. TRANSINT:[id number] Voice Confirmation ID: [id number] DOCUMENT ID: [id number] XOCHITL MORELAND MD at 1151 CC: [id number] DICTATION DATE: 04/27/18 1458 LAWN SPRINKLER INSTALLER: 04/27/18 1653 ADM IN [place] [address] [place] [address]
--- NOTE | ~2018-04-19 | PN ---
PATIENT:STEPHEN PERDOMO MEDICAL RECORD: [id number] LOCATION:[facility] ADMISSION DATE: 04/19/18 PROGRESS NOTE DATE OF SERVICE: 04/22/2018 SUBJECTIVE: The patient's case was discussed with staff. He has no new complaint. OBJECTIVE: The patient has not been aggressive. He is tolerating his medications well. He has limited insight about his situation. He is eating and sleeping reasonably well. ASSESSMENT: No change in diagnoses. PLAN: Current medicines have been reviewed and will be maintained. TRANSINT:[id number] Voice Confirmation ID: [id number] DOCUMENT ID: [id number] XOCHITL MORELAND MD at 1351 CC: [id number] DICTATION DATE: 04/22/18 1300 SECTION BEAMER: 04/22/182031 ADM IN [place] [address] [place] [address]
--- NOTE | ~2018-04-19 | PN ---
PATIENT:STEPHEN PERDOMO MEDICAL RECORD: [id number] LOCATION:[facility] ADMISSION DATE: 04/19/18 PROGRESS NOTE DATE OF SERVICE: 04/28/2018 SUBJECTIVE: The patient's case was discussed with staff. He has no new complaint. OBJECTIVE: The patient is in good behavioral control. He has limited insight about his condition. ASSESSMENT: No change in diagnoses. PLAN: Supportive and educational interventions were made. The patient's long-term prognosis is guarded. TRANSINT:[id number] Voice Confirmation ID: [id number] DOCUMENT ID: [id number] XOCHITL MORELAND MD at 1157 CC: [id number] DICTATION DATE: 04/28/18 1211 GLOBAL COMMODITY MANAGER: 04/28/18 1216 ADM IN [place] [id number] [place] [address]
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
--- NOTE | ~2018-04-19 | PN ---
PATIENT:STEPHEN PERDOMO MEDICAL RECORD: [id number] LOCATION:[facility] Yeung[facility] ADMISSION DATE: 04/19/18 PROGRESS NOTE DATE OF SERVICE: 04/21/2018 SUBJECTIVE: The patient's case was discussed with staff. He has no new complaint. OBJECTIVE: The patient is in good behavioral control with limited insight about his condition. He does tolerate his medicines well. ASSESSMENT: No change in diagnoses. PLAN: Supportive and educational interventions were made. Long-term prognosis is guarded. I am going to discontinue his Depakote secondary to the lack of clinical indication. TRANSINT:[id number] Voice Confirmation ID: [id number] DOCUMENT ID: [id number] XOCHITL MORELAND MD at 1226 CC: [id number] DICTATION DATE: 04/21/18 1301 MAGAZINE HAND: 04/21/18 1315 ADM IN [place] [address] [place] [address]
[2018-04-19] MEDS ORDERED: ACETAMINOPHEN325 MG PO (22:04)
[2018-04-19] MEDS ORDERED: DONEPEZIL HCL10 M1 PO (22:05)
[2018-04-19] MEDS ORDERED: DEPAKOTE250 MG PO (22:06)
[2018-04-19] MEDS ORDERED: MELATONIN 3 MG1 TAB PO (22:07)
[2018-04-19] MEDS ORDERED: COLACE100 MG PO (22:07)
[2018-04-19] MEDS ORDERED: MIRALAX17 GM PO (22:09)
[2018-04-19] MEDS ORDERED: MILK OF MAGNESI30 ML PO (22:09)
[2018-04-19] MEDS ORDERED: PEPCID AC20 MG PO (22:10)
[2018-04-19] MEDS ORDERED: XANAX0.25 MG PO (22:11)
[2018-04-19] MEDS ORDERED: ZOLOFT100 MG PO (22:11)
[2018-04-20 00:49] VITALS: BP 114/69
[2018-04-20 07:04] LABS: COLOR YELLOW (YELLOW)
[2018-04-20 07:05] LABS: APPEARANCE CLEAR (CLEAR); BILIRUBIN NEGATIVE (NEGATIVE); GLUCOSE NEGATIVE (NEGATIVE); KETONE NEGATIVE (NEGATIVE); NITRITE NEGATIVE (NEGATIVE); PROTEIN NEGATIVE (NEGATIVE); UROBILINOGEN NORMAL (NORMAL)
[2018-04-20 07:19] LABS: ALBUMIN 3.4 g/dL (3.4-5.0); ALKALINE PHOSPHATASE 61 U/L (46-116); ALT (SGPT) 20 U/L (10-68); CALC OSMOLALITY 277 mosm/kg (275-300); CALCIUM 9.3 mg/dL (8.5-10.1); CARBON DIOXIDE 29.6 mmol/L (21.0-32.0); CHLORIDE - SERUM 106 mmol/L (98-107); CHOL - HDL RATIO 5.8 ratio (2.3-4.9); CHOLESTEROL, TOTAL 263 mg/dL (0-200); CREATININE - SERUM 0.9 mg/dL (0.6-1.3); GLUCOSE 95 mg/dL (74-106); HDL CHOLESTEROL 45 mg/dL (32-96); LDL CHOLESTEROL 173 mg/dL (0-100); LDL-HDL RATIO 3.8 ratio (1.5-3.5); POTASSIUM - SERUM 4.3 mmol/L (3.5-5.1); PROTEIN - SERUM 7.7 g/dL (6.4-8.2); SODIUM 139 mmol/L (136-145); THYROID STIMULATING HORMONE 1.28 uIU/mL (0.36-3.74); TRIGLYCERIDE 229 mg/dL (30-200); UREA NITROGEN 13 mg/dL (7-18); eGFR NON AFRICAN AMERICAN 86 mL/min (90-120)
[2018-04-20 07:34] LABS: BASOPHILS 0.8 % (0-2); HEMATOCRIT 45.8 % (42.0-54.0); HEMOGLOBIN 15.5 g/dL (13.5-17.5); IMMATURE GRANULOCYTES 0.3 % (0-5); LYMPHOCYTES 34.9 % (15-50); MCH 32.1 pg (26.0-34.0); MCHC 33.8 g/dL (31.0-37.0); MCV 94.8 fL (80.0-100.0); MEAN PLATELET VOLUME 10.5 fL (7.4-10.4); MONOCYTES 7.5 % (2-11); NEUTROPHILS 54.5 % (40-80); RBC 4.83 10x6/uL (4.20-6.10); RDW 13.9 % (11.5-14.5); WBC 7.1 10x3/uL (4.8-10.8)
[2018-04-20 07:40] LABS: PLATELET COUNT 228 10x3/uL (130-400)
[2018-04-20 10:41] VITALS: BP 148/65
[2018-04-20 14:33] VITALS: Ht 160 cm; Wt 56.7 kg
[2018-04-20 20:00] VITALS: BP 109/45
[2018-04-21 06:15] LABS: VITAMIN D 25 HYDROXY 27.3 ng/mL (30.0-100.0)
[2018-04-21 07:22] LABS: RAPID PLASMA REAGIN Non Reactive (Non Reactive)
[2018-04-21 10:15] VITALS: BP 130/81
[2018-04-21 20:00] VITALS: BP 129/60
[2018-04-22 11:02] VITALS: BP 116/71
[2018-04-22 19:47] VITALS: BP 109/57
[2018-04-23 19:50] VITALS: BP 141/60
[2018-04-24 10:00] VITALS: BP 129/57
[2018-04-24 19:46] VITALS: BP 120/66
[2018-04-25 08:00] VITALS: BP 123/85
[2018-04-25 20:24] VITALS: BP 123/61
[2018-04-26 09:47] VITALS: BP 101/64
[2018-04-26 21:02] VITALS: BP 93/56
[2018-04-27 09:07] VITALS: BP 116/58
[2018-04-28 08:00] VITALS: BP 108/68
[2018-04-28 19:39] VITALS: BP 125/53
[2018-04-29 08:00] VITALS: BP 134/58
[2018-04-29 19:59] VITALS: BP 104/50
[2018-04-30 08:00] VITALS: BP 109/61
[2018-04-30 20:29] VITALS: BP 101/59
[2018-05-01 08:00] VITALS: BP 106/63
[2018-05-01] MEDS ORDERED: ANUSOL-HC 2.5%30 GM RC (14:40)
[2018-05-01 20:02] VITALS: BP 126/73
[2018-05-02 08:35] VITALS: BP 136/73
== END 2018-05-02 11:00 | DRG 57 ==
LOC: D.PSYCH 20:53
PROVIDERS: Psychiatry & Neurology Psychiatry
DX: G30.1 Alzheimer's disease with late onset (principal); F02.81 Dementia in other diseases classified elsewhere, unspecified severity, with behavioral disturbance; F01.51 Vascular dementia, unspecified severity, with behavioral disturbance; I69.318 Other symptoms and signs involving cognitive functions following cerebral infarction; N40.0 Benign prostatic hyperplasia without lower urinary tract symptoms; E55.9 Vitamin D deficiency, unspecified; K64.9 Unspecified hemorrhoids; K21.9 Gastro-esophageal reflux disease without esophagitis; F41.9 Anxiety disorder, unspecified; K59.00 Constipation, unspecified

== ENCOUNTER 2018-10-17 00:51 | Emergency (ER) | payer MEDICARE, OTHER ==
[~2018-10-17] VITALS: Ht 160 cm; Wt 75.0 kg
[~2018-10-17 00:51] MED LIST changes: +ANUSOL-HC 2.5%30 GM RC; +COLACE100 MG PO; +DEPAKOTE250 MG PO; +DONEPEZIL HCL10 M1 PO; +MILK OF MAGNESI30 ML PO; +MIRALAX17 GM PO; +PEPCID AC20 MG PO; +XANAX0.25 MG PO; +ZOLOFT100 MG PO
[2018-10-17 00:55] VITALS: Ht 160 cm; Wt 75.0 kg
[2018-10-17 01:29] LABS: APPEARANCE CLEAR (CLEAR); BILIRUBIN NEGATIVE (NEGATIVE); COLOR YELLOW (YELLOW); GLUCOSE NEGATIVE (NEGATIVE); KETONE NEGATIVE (NEGATIVE); NITRITE NEGATIVE (NEGATIVE); PROTEIN NEGATIVE (NEGATIVE); SPECIFIC GRAVITY 1.015 (1.005-1.020); UROBILINOGEN NORMAL (NORMAL)
[2018-10-17 01:30] LABS: BACTERIA FEW /hpf (NONE SEEN); EPITHELIAL CELLS RARE /hpf (0-5); RED CELLS - URINE 0-5 /hpf (0-5)
[2018-10-17 01:44] LABS: BASOPHILS 0.9 % (0-2); EOSINOPHILS 2.4 % (0-7); HEMATOCRIT 41.1 % (42.0-54.0); HEMOGLOBIN 13.5 g/dL (13.5-17.5); IMMATURE GRANULOCYTES 0.1 % (0-5); LYMPHOCYTES 26.7 % (15-50); MCH 31.3 pg (26.0-34.0); MCHC 32.8 g/dL (31.0-37.0); MCV 95.1 fL (80.0-100.0); MEAN PLATELET VOLUME 9.7 fL (7.4-10.4); NEUTROPHILS 59.9 % (40-80); RBC 4.32 10x6/uL (4.20-6.10); RDW 13.3 % (11.5-14.5); WBC 6.7 10x3/uL (4.8-10.8)
[2018-10-17 02:07] LABS: PLATELET COUNT 286 10x3/uL (130-400)
[2018-10-17 02:14] LABS: APTT 28.8 SECONDS (22.8-39.4); INR 0.98 (0.85-1.17); PROTIME 12.5 SECONDS (11.6-15.0)
[2018-10-17 02:33] LABS: ALBUMIN 3.4 g/dL (3.4-5.0); ALKALINE PHOSPHATASE 70 U/L (46-116); ALT (SGPT) 19 U/L (10-68); BILIRUBIN - TOTAL 0.16 mg/dL (0.2-1.3); CALC OSMOLALITY 280 mosm/kg (275-300); CARBON DIOXIDE 27.5 mmol/L (21.0-32.0); CHLORIDE - SERUM 105 mmol/L (98-107); CREATININE - SERUM 0.8 mg/dL (0.6-1.3); GLUCOSE 103 mg/dL (74-106); POTASSIUM - SERUM 3.8 mmol/L (3.5-5.1); PROTEIN - SERUM 7.4 g/dL (6.4-8.2); SODIUM 139 mmol/L (136-145); UREA NITROGEN 22 mg/dL (7-18); eGFR NON AFRICAN AMERICAN > 90 mL/min (90-120)
[2018-10-17 02:44] LABS: CKMB 1.2 U/L (0.0-3.6); CREATINE KINASE 62 UL (21-232)
[2018-10-17 02:47] LABS: TROPONIN-I < 0.017 ng/mL (0.000-0.060)
[2018-10-17 03:48] VITALS: BP 141/73
[2018-10-18 08:17] LABS: FOLATE (FOLIC ACID) - SERUM 10.8 ng/mL (>3.0)
== END 2018-10-17 03:49 | disposition home or self-care (01) ==
LOC: D.ER 00:51
PROVIDERS: Family Medicine
DX: Z00.00 Encounter for general adult medical examination without abnormal findings (principal)

== ENCOUNTER 2018-10-31 09:30 | Inpatient (IN) | payer MEDICARE, OTHER ==
[2018-10-31] MEDS ORDERED: KLONOPIN0.5 MG PO (10:03)
[2018-10-31 10:45] LABS: UDS - AMPHET NEGATIVE QUAL (NEGATIVE); UDS - BARB POSITIVE QUAL (NEGATIVE); UDS - BENZO NEGATIVE QUAL (NEGATIVE); UDS - COCAINE NEGATIVE QUAL (NEGATIVE); UDS - OPIATE NEGATIVE QUAL (NEGATIVE); UDS - PCP NEGATIVE QUAL (NEGATIVE); UDS - THC NEGATIVE QUAL (NEGATIVE)
[2018-10-31 10:46] LABS: BASOPHILS 0.8 % (0-2); EOSINOPHILS 1.4 % (0-7); HEMATOCRIT 40.4 % (42.0-54.0); HEMOGLOBIN 13.7 g/dL (13.5-17.5); IMMATURE GRANULOCYTES 0.2 % (0-5); MCH 31.5 pg (26.0-34.0); MCHC 33.9 g/dL (31.0-37.0); MCV 92.9 fL (80.0-100.0); MONOCYTES 9.9 % (2-11); NEUTROPHILS 57.7 % (40-80); RBC 4.35 10x6/uL (4.20-6.10); RDW 13.6 % (11.5-14.5); WBC 4.8 10x3/uL (4.8-10.8)
[2018-10-31 10:53] LABS: PLATELET COUNT 174 10x3/uL (130-400)
[2018-10-31 10:58] LABS: APTT 27.4 SECONDS (22.8-39.4); PROTIME 12.7 SECONDS (11.6-15.0)
[2018-10-31 10:59] LABS: APPEARANCE CLEAR (CLEAR); BACTERIA FEW /hpf (NONE SEEN); BILIRUBIN NEGATIVE (NEGATIVE); COLOR YELLOW (YELLOW); EPITHELIAL CELLS RARE /hpf (0-5); GLUCOSE NEGATIVE (NEGATIVE); KETONE NEGATIVE (NEGATIVE); MUCUS <1+ /lpf (NONE SEEN); NITRITE NEGATIVE (NEGATIVE); PROTEIN NEGATIVE (NEGATIVE); RED CELLS - URINE 0-5 /hpf (0-5); SPECIFIC GRAVITY 1.015 (1.005-1.020); UROBILINOGEN NORMAL (NORMAL); WHITE CELLS - URINE RARE /hpf (0-5)
[2018-10-31 11:00] LABS: ALBUMIN 3.5 g/dL (3.4-5.0); ALKALINE PHOSPHATASE 61 U/L (46-116); ALT (SGPT) 21 U/L (10-68); CALC OSMOLALITY 279 mosm/kg (275-300); CARBON DIOXIDE 28.4 mmol/L (21.0-32.0); CHLORIDE - SERUM 104 mmol/L (98-107); CREATININE - SERUM 0.8 mg/dL (0.6-1.3); GLUCOSE 94 mg/dL (74-106); POTASSIUM - SERUM 3.8 mmol/L (3.5-5.1); PROTEIN - SERUM 7.2 g/dL (6.4-8.2); SODIUM 139 mmol/L (136-145); UREA NITROGEN 17 mg/dL (7-18); eGFR NON AFRICAN AMERICAN > 90 mL/min (90-120)
[2018-10-31 11:09] LABS: CHOL - HDL RATIO 5.4 ratio (2.3-4.9); CHOLESTEROL, TOTAL 201 mg/dL (0-200); HDL CHOLESTEROL 37 mg/dL (32-96); LDL CHOLESTEROL 136 mg/dL (0-100); LDL-HDL RATIO 3.7 ratio (1.5-3.5); MAGNESIUM - SERUM 1.9 mg/dL (1.8-2.4); TRIGLYCERIDE 142 mg/dL (30-200)
[2018-10-31 17:58] VITALS: BP 134/76; BMI 21.1
--- NOTE | 2018-10-31 17:59 | NUR ---
PT WAS ADMITTED TO [facility] FOR INCREASED CONFUSION AND AGITATION. PER SPOUSE THE PT HAS NOT BEEN SLEEPING WELL. HIS MEDICATIONS HAVE BEEN ADJUSTED SINCE HIS LAST VISIT AND SHE STATED THAT HE HAS GOTTEN WORSE SINCE THEN. SHE REPORTS THAT HE HAS BEEN HITTING TABLES AND MIX BUT NOT HER. PT DID GET TEARFUL WHEN TALKING ABOUT THE REASON FOR ADMISSION. CODE WORD IS BASIA. PT IS A FULL CODE.
[2018-10-31 20:18] VITALS: BP 124/70
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
--- NOTE | 2018-10-31 21:54 | NUR ---
Patient pacing in hallway, "When are you giving me my medications!" ... "I will just have to call my to bring them to me." Unable to state the name of his medications but stated hhe knows he needs to take them. Getting agitated, given one time orders to take all his evening medications and brought same to patient. Patient was relieved and took same without hesitation.
[2018-10-31 22:29] VITALS: BP 134/76
--- NOTE | 2018-10-31 22:29 | NUR ---
12 Lead EKG done.
--- NOTE | 2018-10-31 23:34 | NUR ---
RECEIVED IN DAYROOM. SITTING IN CHAIR AND WATCHING TV. CALM AND COOPERATIVE WITH CARE AND ADMISSION ASSESSMENT. NO AGGRESSIVE BEHAVIORS. NO PARANOID STATEMENTS. REDIRECT AND REORIENT NEEDED. RESTING IN BED WITH EYES CLOSED AT THIS TIME. CONTINUE PLAN OF CARE.
--- NOTE | 2018-11-01 08:00 | NUR ---
CONFUSED AND DISORIENTED.COOPERATIVE WITH STAFF AND MEDS.WILL CONTINUE WITH PLAN OF CARE,MONITOR FOR CHANGES AND SAFETY.NO AGGRESSION OBSERVED.
[2018-11-01 09:30] VITALS: BP 124/70
[2018-11-01 11:21] LABS: FOLATE (FOLIC ACID) - SERUM 14.8 ng/mL (>3.0)
[2018-11-01 14:01] VITALS: BMI 21.1
--- NOTE | 2018-11-01 14:56 | NUR ---
WAS OBSERVED HITTING BACK OF HEAD AGAINST THE WALL.WHEN ASKED WHY HE WAS DOING THAT HE STATED BECAUSE HE WANTED TO CALL HIS AND MAKE PLANS FOR TOMORROW.HALDOL 2MG AND ATIVAN 0.5MG IM TO LEFT BUTTOCK GIVEN.
[2018-11-01 20:00] VITALS: BP 139/85
--- NOTE | 2018-11-01 20:35 | NUR ---
B) Patient wandering around, trying and shaking the locked doors at the end of the unit. Redirected by staff, refusing to use walker and has unsteady gait. Staff intervened x 2 preventing patient from a fall mishap. Patient going from peer to peer and staring but not saying anything. Then proceeded to place blankets on the floor and a pillow and lay down on the floor. When told to get up and staff would escort him to his room so he could sleep, patient became angry and verbally hostile, stating he didn't have to do anything staff told him, irritable, complained of staff harrassing him. Did finally get up and follow directions. No suicidal statements made this evening thus far. I) Administer medications as ordered, redirect behavior as needed, offer 1:1 time to verbalize feelings and voice concerns/needs. Monitor for behavior changes and maintain safety of unit. R) Restless, anxious, labile, impulsive, compliant with medications. Trying to leave, banging on locked doors, AWOL risk. P) Monitor per plan of care.
--- NOTE | 2018-11-02 03:19 | NUR ---
Not sleeping well, awake several times, confused, has no idea what time it is or where he is. Cannot find his room after coming out to nursing station, wanders into other patient's rooms. Escorted back to own room numerous times, throwing linen on the floor then complains of being cold as has no blankets, has no idea how his linens got on the floor even though staff observed him throwing them on the floor. Took a swing at staff, angry when urged to get back into bed after being told the time.
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
[2018-11-02 09:34] VITALS: BP 117/94
--- NOTE | 2018-11-02 13:56 | NUR ---
ARGUMENTIVE AND COMBATIVE WITH STAFF.WILL NOT REDIRECT.ATIVAN 0.5MG AND HALDOL 2MG IM GIVEN PER ORDERS.
[2018-11-02 20:19] VITALS: BP 134/62
[2018-11-03 09:21] VITALS: BP 120/79
--- NOTE | 2018-11-03 10:00 | NUR ---
RECEIVED PATIENT IN DINING ROOM FOR [facility], ALERT, CONFUSED, RESTLESS, PACING ABOUT DAYROOM LOOKING FOR HIS SPOUSE. NO AGGRESSION NOTED. MEDS ADMIN PER ORDERS WITH COMPLETE MED COMPLIANCE NOTED. COOPERATIVE WITH STAFF REQUESTS AND GROUP THERAPY. CONT POC INCLUDING MEDS AND GROUP THERAPY DIRECTED.
--- NOTE | 2018-11-03 12:33 | PSY ---
PATIENT NAME:STEPHEN PERDOMO MEDICAL RECORD: [id number] : 39 LOCATION:[facility] ADMISSION DATE: 10/31/18 ACCOUNT: [id number] PSYCHIATRIC EVALUATION DATE OF EVALUATION: 11/01/18 IDENTIFYING DATA: The patient is 83 years old and he is known to me from previous clinical contact. CHIEF COMPLAINT: Agitation. HISTORY OF PRESENT ILLNESS: The patient has a known history of vascular dementia. He has been treated at this facility at least 2 previous times. His has him at home. He has not been sleeping. He has become increasingly agitated, hitting his fists on the kumari and tables. She is frightened of him. On admission, he has no recollection of this. He is only oriented to person. He denies wanting to harm himself or others. PAST MEDICAL HISTORY: Significant for stroke. He also has coronary artery disease and had a craniotomy in August of 2017 secondary to a fall. PAST PSYCHIATRIC HISTORY: Significant for a longstanding diagnosis of dementia with multiple psychiatric hospitalizations associated with disruptive behaviors because of the cognitive impairment. ALLERGIES: PENICILLIN. CURRENT MEDICATIONS: Include Flomax, trazodone, Klonopin, melatonin, Zoloft and Pepcid. FAMILY HISTORY: Significant for hypertension. SOCIAL HISTORY: The patient is . He has adult children. He is originally from [place] and he has no history of drug or alcohol abuse. MENTAL STATUS EXAMINATION: The patient is awake, alert and oriented to person and place, but not to time or situation. His mood is flat. His affect is constricted. Thought processes are circumstantial. Memory, concentration, and abstraction abilities are moderately impaired. He denies any intent to harm himself or others as well as overt psychotic symptoms. ASSETS: Supportive family members. LIABILITIES: Limited insight. DIAGNOSTIC IMPRESSION: AXIS I: Vascular dementia. AXIS II: None. AXIS III: Previous stroke, constipation, hyperlipidemia, benign prostatic hypertrophy. AXIS IV: Moderate. AXIS V: Global assessment of functioning is 30. PLAN: At this time, the patient is admitted to the hospital secondary to agitated behavior at home. He will be treated with both mood stabilizing and memory enhancing medications. His long-term prognosis is guarded. TRANSINT:[id number] Voice Confirmation ID: [id number] DOCUMENT ID: [id number] XOCHITL MORELAND MD at 1233 CC: [id number] DICTATION DATE: 11/01/18 1606 DENTAL HYGIENIST MOBILE COORDINATOR: 11/01/18 1632 ADM IN [place] [id number] [place] [id number]
--- NOTE | 2018-11-03 12:33 | PN ---
PATIENT:STEPHEN PERDOMO MEDICAL RECORD: [id number] LOCATION:[facility] Yeung112 ADMISSION DATE: 10/31/18 PROGRESS NOTE DATE OF SERVICE: 11/02/2018 SUBJECTIVE: The patient's case was discussed with staff. He has no new complaint. OBJECTIVE: The patient has been quite agitated. He has required 2 p.r.n. doses of medication because of the agitation. He has pretty limited insight about his situation. ASSESSMENT: Senile dementia of the Alzheimer's type with behavioral disturbances. PLAN: I am going to start the patient on Geodon at bedtime to assist with his behavior outbursts. His long-term prognosis is guarded. Once again, we are going to suggest to the placement in a group home for his benefit and for her safety. In the past, she has been unwilling to do this. TRANSINT:[id number] Voice Confirmation ID: [id number] DOCUMENT ID: [id number] XOCHITL MORELAND MD at 1233 CC: [id number] DICTATION DATE: 11/02/181715 PUBLIC RECORDS OFFICER: 11/03/18 0001 ADM IN [facility] [address] [place] [address]
--- NOTE | 2018-11-03 17:54 | NUR ---
REQUESTED TO PHONE , BUT NO ANSWER. MESSAGE LEFT.
--- NOTE | 2018-11-03 18:00 | NUR ---
PATIENT'S SPEAKING TO PATIENT ON TELEPHONE. PATIENT VERY CONFUSED.
--- NOTE | 2018-11-03 18:10 | NUR ---
PATIENT RESTLESS, PACING, AND QUITE TROUBLED. ATIVAN 0.5 MG ADMIN PO FOR ANXIETY.
[2018-11-03 21:47] VITALS: BP 133/78
--- NOTE | 2018-11-03 22:52 | NUR ---
PATIENT NEEDS A LOT OF REDIRECTING, COMPLIANT WITH MEDS, NO ADVERSE REACTION NOTED. CONFUSED. WILL FOLLOW POC
--- NOTE | 2018-11-04 06:40 | NUR ---
PATIENT RECEIVED HALDOL AND ATIVAN IM @ 0420 FOR PSYCHOSIS AND SEVERE AGITATION, PATIENT WAS SCREAMING, CUSSING, GRABBING THE MONITOR TO THE COMPUTER, TRYING TO HIT STAFF AND DESTROY PROPERTY AND SAYING DEROGATORY STATEMENTS TOWARD THIS NURSE (SEXUALLY).
[2018-11-04 07:00] VITALS: BP 157/86
--- NOTE | 2018-11-04 11:18 | NUR ---
AGGRESSIVE,TRYING TO THROW A CHAIR ,THREATENING TO HIT STAFF.WILL NOT REDIRECT.HALDOL 2MG AND ATIVAN 0.5MG IM TO LEFT HIP GIVEN.
--- NOTE | 2018-11-04 12:21 | PN ---
PATIENT:STEPHEN PERDOMO MEDICAL RECORD: [id number] LOCATION:[facility] ADMISSION DATE: 10/31/18 PROGRESS NOTE DATE OF SERVICE: 11/03/2018 SUBJECTIVE: The patient's case was discussed with staff. He has no new complaint. OBJECTIVE: The patient is in good behavioral control. He has not been significantly disruptive today. ASSESSMENT: Senile dementia of the Alzheimer's type with behavioral disturbances. PLAN: The patient's Klonopin will be reduced to 0.5 mg twice daily. I am treating him with Klonopin because he often becomes agitated when he does not understand or cannot process things in his environment and then he will become aggressive. I think that I can help with that by reducing the level of anxiety that he has in such situations. TRANSINT:[id number] Voice Confirmation ID: [id number] DOCUMENT ID: [id number] XOCHITL MORELAND MD at 1221 CC: [id number] DICTATION DATE: 11/03/18 1246 BEAUTY OPERATOR APPRENTICE: 11/03/182050 ADM IN [facility] [address] [place] [address]
--- NOTE | 2018-11-04 12:30 | NUR ---
FAIR RESPONSE TO HALDOL AND ATIVAN.NO MORE AGGRESSION OBSERVED.RESTLESS.CONFUSED.WILL CONTINUE WITH PLAN OF CARE,MONITOR FOR CHANGES AND SAFETY.
[2018-11-04 21:03] VITALS: BP 153/81
--- NOTE | 2018-11-05 00:34 | NUR ---
PATIENT IS CONFUSED, LABILE, AGGRESSIVE AT TIMES, COMPLIANT WITH MEDS, NO ADVERSE REACTION NOTED. WILL FOLLOW POC
[2018-11-05 07:00] VITALS: BP 133/78
--- NOTE | 2018-11-05 14:00 | NUR ---
CONFUSED AND DISORIENTED.IS COMPLIANT WITH STAFF AND MEDS.NO AGGRESSION OBSERVED TODAY.WILL CONTINUE WITH PLAN OF CARE,MONITOR FOR CHANGES AND SAFETY.
--- NOTE | 2018-11-05 19:19 | NUR ---
SW called Pt's on this day to touch base with her in regards to Pt's discharge plans. Pt's states that she did got to [facility] today to check them out since Pt was there previously and to see how she felt about it now & if she felt like there has been positive changes within the facility. Pt's states that she got a pretty good feeling about the facility and that it seems cleaner and dyer and just over all better than when Pt left there at the end of last year. Pt's is open to Pt going there when he is ready to be discharghed from Snf.
[2018-11-05 20:30] VITALS: BP 128/52
--- NOTE | 2018-11-06 05:14 | NUR ---
RECEIVED IN DAYROOM. WANDERING AROUND. CONFUSED. CALM AND COOPERATIVE WITH CAR AND ASSESSMENT. NO AGGRESSION OR AGITATION. NO PARANOIA. REDIRECT AND REORIENT NEEDED. RESTING IN BED WITH EYES CLOSED AT THIS TIME. CONTINUE PLAN OF CARE.
[2018-11-06 08:00] VITALS: BP 114/60
--- NOTE | 2018-11-06 08:00 | NUR ---
PATIENT BECAME AGGRESSIVE WITH ADL'S. REDIRECTED PATIENT TO GO TO DINING ROOM. WILL CONTINUE POC.
[2018-11-06 09:59] VITALS: BMI 21.2
--- NOTE | 2018-11-06 16:30 | NUR ---
PATIENT BECAME AGGRESSIVE, HITTING, AND KICKING STAFF WITH REDIRECTION. HE WAS UPSET AFTER VISITATION WITH . HE STARTED EXIT-SEEKING AND VERY ANXIOUS.
[2018-11-06 19:32] VITALS: BP 152/77
--- NOTE | 2018-11-06 22:43 | NUR ---
RECEIVED IN PATIENT ROOM. WANDERING AROUND. CALM AND COOPERATIVE WITH CARE AND ASSESSMENT. NO AGITATION. NO AGGRESSION. REDIRECT AND REORIENT NEEDED. RESTING IN BED WITH EYES CLOSED AT THIS TIME. CONTINUE PLAN OF CARE.
--- NOTE | 2018-11-07 07:52 | NUR ---
HALDOL 2 MG IM GIVEN IN LEFT GLUTEAL [place]VIN FOR ANXIETY AND AGITATION. PATIENT BECAME VERY AGGRESSIVE AND RESISTANT TO REDIRECTION. HE WAS HITTING, KICKING AND TRYING TO BITE STAFF.
[2018-11-07 08:00] VITALS: BP 133/80
--- NOTE | 2018-11-07 08:49 | NUR ---
PATIENT'S CALLED FOR AN UPDATE ON PATIENTS BEHAVIOR AND STAUS.
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
--- NOTE | 2018-11-07 12:57 | PN ---
PATIENT:STEPHEN PERDOMO MEDICAL RECORD: [id number] LOCATION:[facility] ADMISSION DATE: 10/31/18 PROGRESS NOTE DATE OF SERVICE: 11/06/2018 SUBJECTIVE: The patient's case was discussed with staff. He has no new complaint. OBJECTIVE: The patient denies intent to harm himself or others. He is tolerating his medicines well. Eye contact is fair. ASSESSMENT: No change in diagnoses. PLAN: The patient was agitated earlier. He has received p.r.n. medications. I am going to treat him with low dose of Neurontin to help with his agitated behavior. TRANSINT:[id number] Voice Confirmation ID: [id number] DOCUMENT ID: [id number] XOCHITL MORELAND MD at 1257 CC: [id number] DICTATION DATE: 11/06/18 1015 SHANK PINNER: 11/06/18 1454 ADM IN [facility] [address] [place] [address]
--- NOTE | 2018-11-07 14:00 | NUR ---
PATIENT HAS BEEN CALMER THIS AFTERNOON. NO AGGRESSION NOTED.
[2018-11-07 20:00] VITALS: BP 160/95
--- NOTE | 2018-11-08 00:42 | NUR ---
B) Patient is alert an doriented to person, wanders at times, no aggression noted, I) Administered scheduled medications as ordered, redirected as needed, R) Mediation compliant, resting quietly in his room P) Continue plan of care.
[2018-11-08 08:30] VITALS: BP 146/87
--- NOTE | 2018-11-08 10:00 | NUR ---
RECEIVED PATIENT IN DINING ROOM FOR B'FAST, CALM, COOPERATIVE, DROWSY. MEDS ADMIN PER ORDERS WITH COMPLETE MED COMPLIANCE NOTED. COOPERATIVE WITH GROUP AND STAFF REQUESTS. CONT POC INCLUDING MEDS AND GROUP THERAPY DIRECTED.
--- NOTE | 2018-11-08 12:29 | PN ---
PATIENT:STEPHEN PERDOMO MEDICAL RECORD: [id number] LOCATION:[facility] ADMISSION DATE: 10/31/18 PROGRESS NOTE DATE OF SERVICE: 11/07/2018 SUBJECTIVE: The patient's case was discussed with staff. He has no new complaint. OBJECTIVE: The patient denies intent to harm himself or others. He generally tolerates his medicines well. He was fairly agitated earlier this morning, but now seems calmer. ASSESSMENT: Senile dementia of the Alzheimer's type with behavioral disturbances. PLAN: The patient's Klonopin is going to be increased to 0.5 mg three times daily. His long-term prognosis is guarded. TRANSINT:[id number] Voice Confirmation ID: [id number] DOCUMENT ID: [id number] XOCHITL MORELAND MD at 1229 CC: [id number] DICTATION DATE: 11/07/18 1548 DIRECTOR MOTION PICTURE: 11/07/18 1721 ADM IN [place] [id number] [place] [address]
[2018-11-08 20:31] VITALS: BP 149/69
--- NOTE | 2018-11-09 04:34 | NUR ---
B) Patient is alert and oriented to self, restless and boundary testing, I) Administered scheduled medications as ordered, redirected as needed, monitored for safety R) Medication compliant, constantly in to something at all times, takes everything apart, P) Continue plan of care.
--- NOTE | 2018-11-09 07:00 | NUR ---
SPOUSE CALLED TO CHECK ON PATIENT.
[2018-11-09 09:03] VITALS: BP 126/74
--- NOTE | 2018-11-09 10:00 | NUR ---
PATIENT QUITE DROWSY THIS MORNING, UNSTEADY GAIT, SHEETING PULLER REPORTED THAT PATIENT SLEPT ONLY 2.25 HOURS LAST NIGHT AND INSTEAD SPENT HIS TIME ATTEMPTING TO TAKE THE WHEELS OFF HIS BED AND LANA WITH OTHER OBJECTS IN THE ROOM. MEDS ADMIN PER ORDERS WITH COMPLETE MED COMPLIANCE NOTED. COOPERATIVE WITH CARE, NO AGGRESSION NOTED. CONT POC INCLUDING MEDS AND GROUP THERAPY DIRECTED.
--- NOTE | 2018-11-09 13:58 | PN ---
PATIENT:STEPHEN PERDOMO MEDICAL RECORD: [id number] LOCATION:[facility]112 ADMISSION DATE: 10/31/18 PROGRESS NOTE DATE OF SERVICE: 11/08/2018 SUBJECTIVE: The patient's case was discussed with staff. He has no new complaint. OBJECTIVE: The patient is in good behavioral control with poor insight about his condition. He is agitated at times. ASSESSMENT: No change in diagnoses. PLAN: Supportive and educational interventions were made. Long-term prognosis is guarded. TRANSINT:[id number] Voice Confirmation ID: [id number] DOCUMENT ID: [id number] XOCHITL MORELAND MD at 1358 CC: [id number] DICTATION DATE: 11/08/18 1311 SAP BASIS CONSULTANT: 11/08/18 1322 ADM IN [place] [id number] [place] [address]
[2018-11-09 20:09] VITALS: BP 197/88
--- NOTE | 2018-11-10 03:35 | NUR ---
B) Patient is alert an doriented to person and being in a hospital, restless and wanders at times, I) Administered scheduled medications as ordered, monitored for safety R) Mediation compliant, less wandering this shift than last night, P) Continue plan of care.
[2018-11-10 08:00] VITALS: BP 118/70
--- NOTE | 2018-11-10 09:37 | NUR ---
The patient is shaking this am. He has poor insight into his situation. He is sleepy this am, sitting in the gerichair and he needed staff to assist him with breakfast this morning. He has not shown any aggression this am. I) Provide prescribed meds. R) The patient is compliant with meds. P) Continue POC.
--- NOTE | 2018-11-10 09:39 | PN ---
PATIENT:STEPHEN PERDOMO MEDICAL RECORD: [id number] LOCATION:[facility] ADMISSION DATE: 10/31/18 PROGRESS NOTE DATE OF SERVICE: 11/09/2018 SUBJECTIVE: The patient's case was discussed with staff. He has no new complaint. OBJECTIVE: The patient continues to be significantly agitated and disruptive. He is frequently requiring p.r.n. medications because of his agitation. ASSESSMENT: Senile dementia of the Alzheimer's type with behavioral disturbances. PLAN: The patient's Klonopin is going to be increased slightly. His long-term prognosis is guarded. TRANSINT:[id number] Voice Confirmation ID: [id number] DOCUMENT ID: [id number] XOCHITL MORELAND MD at 0939 CC: [id number] DICTATION DATE: 11/09/18 1417 TANNING SOLUTION MAKER: 11/09/18 1540 ADM IN [place] [id number] [place] [address]
[2018-11-10 11:06] LABS: BASOPHILS 0.9 % (0-2); EOSINOPHILS 0.3 % (0-7); HEMATOCRIT 41.9 % (42.0-54.0); HEMOGLOBIN 14.3 g/dL (13.5-17.5); IMMATURE GRANULOCYTES 0.1 % (0-5); LYMPHOCYTES 19.6 % (15-50); MCHC 34.1 g/dL (31.0-37.0); MCV 93.7 fL (80.0-100.0); MEAN PLATELET VOLUME 9.8 fL (7.4-10.4); MONOCYTES 7.2 % (2-11); NEUTROPHILS 71.9 % (40-80); RBC 4.47 10x6/uL (4.20-6.10); RDW 13.9 % (11.5-14.5)
[2018-11-10 11:08] LABS: PLATELET COUNT 248 10x3/uL (130-400)
[2018-11-10 11:21] LABS: APPEARANCE CLEAR (CLEAR); BILIRUBIN NEGATIVE (NEGATIVE); COLOR YELLOW (YELLOW); GLUCOSE NEGATIVE (NEGATIVE); KETONE LARGE mg/dL (NEGATIVE); NITRITE NEGATIVE (NEGATIVE); PROTEIN NEGATIVE (NEGATIVE); SPECIFIC GRAVITY 1.025 (1.005-1.020); UROBILINOGEN NORMAL (NORMAL)
[2018-11-10 11:44] LABS: ALBUMIN 3.3 g/dL (3.4-5.0); ALKALINE PHOSPHATASE 61 U/L (46-116); ALT (SGPT) 27 U/L (10-68); BILIRUBIN - TOTAL 0.41 mg/dL (0.2-1.3); CALC OSMOLALITY 291 mosm/kg (275-300); CALCIUM 9.2 mg/dL (8.5-10.1); CARBON DIOXIDE 29.6 mmol/L (21.0-32.0); CHLORIDE - SERUM 108 mmol/L (98-107); GLUCOSE 100 mg/dL (74-106); POTASSIUM - SERUM 3.6 mmol/L (3.5-5.1); PROTEIN - SERUM 6.8 g/dL (6.4-8.2); SODIUM 145 mmol/L (136-145); UREA NITROGEN 20 mg/dL (7-18); eGFR NON AFRICAN AMERICAN 76 mL/min (90-120)
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
[2018-11-10 19:57] VITALS: BP 101/48
--- NOTE | 2018-11-11 04:06 | NUR ---
B) Patient is alert and oriented to self, very confused and restless at times,, I) Administered scheduled medications as ordered, redirected as needed, R) Mediation compliant, resistant to redirection at times, P) Continue plan of care.
[2018-11-11 07:00] VITALS: BP 112/75
--- NOTE | 2018-11-11 07:55 | NUR ---
PT SITTING IN CHAIR IN HALLWAY BY NURSES STATION. PT SLID OUT OF CHAIR. DENIES ANY PAIN V/S 126/62, 97.5, 102,18. PT ASSESSED PER STAFF. ASSISTED UP PER STAFF. PT PUT IN OLMAN CHAIR. NEURO CHECKS STARTED. DR. ANGELO CALLED. NO NEW ORDERS AT TIME. PT FAMILY NOTIFIED SPOKE WITH DEJA. NO S/SX OF DISTRESS NOTED OR VOICED. WILL CONTINUE TO MONITOR Q 15 MINUTES FOR SAFETY. WILL CPOC.
--- NOTE | 2018-11-11 08:10 | NUR ---
PT SITTING IN CHAIR AT NURSES STATION AFTER STAFF ASSISTED PT INTO CHAIR. PT BECAME PHYSICALLY AGGRESSIVE WITH STAFF, KICKING, HEADBUTTING, DIGGING NAILS IN SKIN, CURSING, PUNCHING STAFF. 3X STAFF MEMBERS ATTEMPTED TO REDIRECT PT. UNABLE TO REDIRECT AT THIS TIME. ATIVAN 0.[address] PADILLA. WILL REASSES Q 1 HOUR. WILL CONT TO MONITOR Q 15 MINS FOR SAFETY.
--- NOTE | 2018-11-11 09:10 | NUR ---
NO AGGRESSIVE BEHAVIOR NOTED AT THIS TIME. PT IS SITTING IN CHAIR AT THIS TIME WITH EYES CLOSED. RESP EVEN AND NONLABORED. NO DISTRESS NOTED. CHAIR ALARM IN PLACE AND ACTIVE. WILL CONT TO MONITOR Q 15 MINS FOR SAFETY.
--- NOTE | 2018-11-11 10:31 | PN ---
PATIENT:STEPHEN PERDOMO MEDICAL RECORD: [id number] LOCATION:[facility] Yeung112 ADMISSION DATE: 10/31/18 PROGRESS NOTE DATE OF SERVICE: 11/10/2018 SUBJECTIVE: The patient's case was discussed with staff. He has no new complaint. OBJECTIVE: The patient is somewhat sedated today. It is probably related to the Klonopin and the p.r.n. medicines catching up with him. He has almost no insight about his situation. ASSESSMENT: No change in diagnoses. PLAN: Current medicines and therapies have been reviewed. I am going to discontinue the Haldol secondary to concerns about some extrapyramidal side effects. I will leave the p.r.n. Ativan and we will also order p.r.n. Geodon. TRANSINT:[id number] Voice Confirmation ID: [id number] DOCUMENT ID: [id number] XOCHITL MORELAND MD at 1031 CC: [id number] DICTATION DATE: 11/10/18 1053 COLLAR PADDER BLINDSTITCH: 11/10/18 1135 ADM IN [place] [address] [place] [address]
[2018-11-11 20:07] VITALS: BP 129/79
--- NOTE | 2018-11-12 03:17 | NUR ---
RECEIVED IN DAYROOM. RESTING IN RECLINER WITH EYES OPEN. CALM AND COOPERATIVE WITH CARE AND ASSESSMENT. NO AGITATION OR AGGRESSION. NO PARANOIA. REDIRECT AND REORIENT NEEDED. RESTING IN BED WITH EYES CLOSED AT THIS TIME. CONTINUE PLAN OF CARE.
--- NOTE | 2018-11-12 08:00 | NUR ---
REC'D PT IN HALLWAY BY NURSES STATION. PT CALM AND COOPERATIVE WITH ASSESSMENT. REDIRECT AND REORIENT NEEDED. PRESCRIBED MEDS PROVIDED. MED COMPLIANT. FALL PRECAUTIONS IN PLACE. WILL CPOC.
[2018-11-12 08:10] VITALS: BP 88/50
[2018-11-12 09:52] LABS: BASOPHILS 0.6 % (0-2); EOSINOPHILS 0.9 % (0-7); HEMATOCRIT 43.3 % (42.0-54.0); HEMOGLOBIN 14.7 g/dL (13.5-17.5); IMMATURE GRANULOCYTES 0.1 % (0-5); LYMPHOCYTES 21.1 % (15-50); MCH 31.8 pg (26.0-34.0); MCHC 33.9 g/dL (31.0-37.0); MCV 93.7 fL (80.0-100.0); MEAN PLATELET VOLUME 9.8 fL (7.4-10.4); NEUTROPHILS 68.3 % (40-80); PLATELET COUNT 251 10x3/uL (130-400); RBC 4.62 10x6/uL (4.20-6.10); RDW 13.7 % (11.5-14.5); WBC 6.7 10x3/uL (4.8-10.8)
[2018-11-12 10:10] LABS: ALBUMIN 3.3 g/dL (3.4-5.0); ANION GAP 11.2 mmol/L (8-16); BILIRUBIN - TOTAL 0.37 mg/dL (0.2-1.3); CALCIUM 9.8 mg/dL (8.5-10.1); CARBON DIOXIDE 29.6 mmol/L (21.0-32.0); CREATININE - SERUM 1.1 mg/dL (0.6-1.3); POTASSIUM - SERUM 3.8 mmol/L (3.5-5.1); PROTEIN - SERUM 6.9 g/dL (6.4-8.2)
--- NOTE | 2018-11-12 14:04 | NUR ---
Nutrition Follow Up: Chart reviewed Diet: Regular PO Intake: 20% meal avg BM: 11/10/18 Labs reviewed Meds noted including Megace Rec continue current diet. Will continue to honor food preferences and provide supplements prn. RD following.
[2018-11-12 19:48] VITALS: BP 122/83
--- NOTE | 2018-11-13 04:55 | NUR ---
RECEIVED IN DAYROOM. RESTING IN RECLINER WITH EYES OPEN. ATTEMPTING TO GET UP WITHOUT ASSISTANCE. ALARM SOUNDING. CALM AND COOPERATIVE WITH CARE AND ASSESSMENT. NO PARANOIA. NO AGITATION OR AGGRESSION. REDIRECT AND REORIENT NEEDED. RESTING IN BED WITH EYES CLOSED AT THIS TIME. CONTINUE PLAN OF CARE.
[2018-11-13 07:00] VITALS: BP 125/61
--- NOTE | 2018-11-13 09:41 | NUR ---
RECEIVED PATIENT IN DAYROOM FOR B'FAST, ALERT, AGITATED, COMBATIVE WITH STAFF, EXTREMELY CONFUSED. REQUIRES FEEDING PER STAFF. TOOK MEDS IN CHOCOLATE PUDDING. UNSTEADY GAIT. REQUIRES FREQUENT REMINDERS TO NOT GET UP WITHOUT ASSISTANCE. ENJOYS TAKING THINGS APART. PRESENT FOR GROUP WITH LITTLE PARTICPATION NOTED. OFTEN UNCOOPERATIVE. CONT POC INCLUDING MEDS AND GROUP THERAPY DIRECTED.
--- NOTE | 2018-11-13 10:17 | NUR ---
INCREASING AGITATION/ANXIETY NOTED. ATTEMPTING TO HIT STAFF WITH WILIAN ALARM. ATIVAN 0.5 MG TABLET ADMIN BY MOUTH FOR ANXIETY.
--- NOTE | 2018-11-13 12:41 | PN ---
PATIENT:STEPHEN PERDOMO MEDICAL RECORD: [id number] LOCATION:[facility] ADMISSION DATE: 10/31/18 PROGRESS NOTE DATE OF SERVICE: 11/12/2018 SUBJECTIVE: The patient's case was discussed with staff. He has no new complaint. OBJECTIVE: The patient is fairly limited in his insight. He has difficulty being redirected. He became angry today and threw his tray. ASSESSMENT: No change in diagnoses. PLAN: The patient is receiving Megace to assist with appetite stimulation. His long-term prognosis is guarded. TRANSINT:[id number] Voice Confirmation ID: [id number] DOCUMENT ID: [id number] XOCHITL MORELAND MD at 1241 CC: [id number] DICTATION DATE: 11/12/18 1510 TIMBER MILL WORKER: 11/12/18 1632 ADM IN [facility] [address] [place] [address]
--- NOTE | 2018-11-13 12:41 | PN ---
PATIENT:STEPHEN PERDOMO MEDICAL RECORD: [id number] LOCATION:[facility] Carball[facility]ibrado112 ADMISSION DATE: 10/31/18 PROGRESS NOTE DATE OF SERVICE: 11/11/2018 SUBJECTIVE: The patient's case was discussed with staff. He has no new complaint. OBJECTIVE: The patient denies intent to harm himself or others. He has been fairly agitated and indeed received some p.r.n. medication this morning for agitation. ASSESSMENT: No change in diagnoses. PLAN: Current medicines will be maintained. His long-term prognosis is guarded. TRANSINT:[id number] Voice Confirmation ID: [id number] DOCUMENT ID: [id number] XOCHITL MORELAND MD at 1241 CC: [id number] DICTATION DATE: 11/11/18 1041 SUPERVISOR PLASTERING: 11/11/18 1233 ADM IN [place] [address] [place] [address]
[2018-11-13 20:08] VITALS: BP 118/62
--- NOTE | 2018-11-14 02:27 | NUR ---
RECEIVED IN DAYROOM. RESTING IN RECLINER WITH EYES OPEN. CALM AND COOPERATIVE WITH CARE AND ASSESSMENT. NO AGITATION. NO AGGRESSIVE BEHAVIORS. REDIRECT AND REORIENT NEEDED. RESTING IN BED WITH EYES CLOSED AT THIS TIME. CONTINUE PLAN OF CARE.
[2018-11-14 08:04] VITALS: BP 132/79
--- NOTE | 2018-11-14 09:30 | NUR ---
RECEIVED PATIENT IN DINING ROOM FOR B'FAST, DROWSY, CALM, NO AGGRESSION NOTED. MEDS ADMIN PER ORDERS WITH COMPLETE MED COMPLIANCE NOTED. COOPERATIVE WITH CARE. CONT POC INCLUDING MEDS AND GROUP THERAPY DIRECTED.
--- NOTE | 2018-11-14 13:07 | PN ---
PATIENT:STEPHEN PERDOMO MEDICAL RECORD: [id number] LOCATION:[facility] Yeung112 ADMISSION DATE: 10/31/18 PROGRESS NOTE DATE OF SERVICE: 11/13/2018 SUBJECTIVE: The patient's case was discussed with staff. He has no new complaint. OBJECTIVE: The patient is very confused. He says he does not have a and is angry when I correct him that he does and that she is wanting to come see him today. ASSESSMENT: Senile dementia of the Alzheimer's type with behavioral disturbances. PLAN: Current medicines have been reviewed and will be maintained. Long-term prognosis is guarded. Supportive and educational interventions were made. TRANSINT:[id number] Voice Confirmation ID: [id number] DOCUMENT ID: [id number] XOCHITL MORELAND MD at 1307 CC: [id number] DICTATION DATE: 11/13/18 1327 CUT OUT MARKER: 11/13/18 1333 ADM IN [facility] [address] [place] [address]
[2018-11-14 19:48] VITALS: BP 127/79
--- NOTE | 2018-11-15 02:00 | NUR ---
RECEIVED IN DAYROOM. RESTING IN RECLINER WITH EYES OPEN. CALM AND COOPERATIVE WITH CARE AND ASSESSMENT. NO AGITATION. NO PARNOIA. NO AGGRESSION. REDIRECT AND REORIENT NEEDED. RESTING IN BED WITH EYES CLOSED AT THIS TIME. CONTINUE PLAN OF CARE.
--- NOTE | 2018-11-15 08:18 | NUR ---
B) The patient is confused, he has poor insight into his situation. He is pleasant, but he does not listen or redirect. He is unsteady and he tries to walk. An alarm is on his chair for safety. He has been redirected to sit by multiple staff. I) Provide prescribed meds. R) The patient is pleasant, he just does not have insight into his situation. P) Continue POC.
[2018-11-15 09:13] VITALS: BP 128/71
--- NOTE | 2018-11-15 14:43 | NUR ---
PT IN DAY AREA WITH STAFF ATTEMPTING TO PUSH OVER TABLES IN ORDER TO GET UP UNASSISTED. PT JUST RETURNED FROM RESTROOM. WHEN ATTEMPTED TO REDIRECT PT BECOMES AGGRESSIVE AND BEGINS TO GET ANXIETY. NURSE ADMINISTERED ATIVAN 0.[address] PADILLA ORDER. WILL REASSESS Q 1 HOUR FOR SAFETY.
--- NOTE | 2018-11-15 14:52 | PN ---
PATIENT:STEPHEN PERDOMO MEDICAL RECORD: [id number] LOCATION:[facility] ADMISSION DATE: 10/31/18 PROGRESS NOTE DATE OF SERVICE: 11/14/2018 SUBJECTIVE: The patient's case was discussed with staff. He has no new complaint. OBJECTIVE: The patient is in good behavioral control with limited insight about his condition. He tolerates his medicines well. He is very impaired cognitively, but he has been much less agitated. ASSESSMENT: Senile dementia of the Alzheimer's type with behavioral disturbances. PLAN: Supportive and educational interventions were made. Long-term prognosis is guarded. TRANSINT:[id number] Voice Confirmation ID: [id number] DOCUMENT ID: [id number] XOCHITL MORELAND MD at 1452 CC: [id number] DICTATION DATE: 11/14/18 1433 WHEEL POLISHER: 11/14/18 1503 ADM IN [facility] [address] [place] [address]
--- NOTE | 2018-11-15 18:37 | NUR ---
PT SITTING IN DAY AREA IN RECLINER CHAIR. PT CONFUSED WITH POOR JUDGEMENT AND LACK OF INSIGHT. ATTEMPTING TO TAKE OFF PANTS. REDIRECTION CONSTANTLY NEEDED PER STAFF. PT IS MED COMPLIANT. PT RECIEVED PRN PO FOR ANXIETY AND WAS EFFECTIVE AT THAT TIME. CHAIR ALARM IN PLACE AND ACTIVE. WILL CONT TO MONITOR Q 15 MINS FOR SAFETY.
[2018-11-15 19:50] VITALS: BP 122/60
--- NOTE | 2018-11-16 01:19 | NUR ---
B) Patient is alert and oriented to self, very confused , tries to talk to staff but usually he does not make complete sense, I) Administered scheduled medications as ordered, monitored for safety R) Mediation compliant, sleeping quietly in bed now, P) Continue plan of care.
[2018-11-16 08:09] VITALS: BP 124/71
--- NOTE | 2018-11-16 14:29 | PN ---
PATIENT:STEPHEN PERDOMO MEDICAL RECORD: [id number] LOCATION:[facility] ADMISSION DATE: 10/31/18 PROGRESS NOTE DATE OF SERVICE: 11/15/2018 SUBJECTIVE: The patient's case was discussed with staff. He has no new complaint. OBJECTIVE: The patient is partially oriented. He is a little agitated, but can be reasonably calmed. ASSESSMENT: No change in diagnoses. PLAN: Current medicines have been reviewed. I am going to increase the dose of his Neurontin to 200 mg twice daily. Neurontin is being used to treat his mood lability. His long-term prognosis is guarded. TRANSINT:[id number] Voice Confirmation ID: [id number] DOCUMENT ID: [id number] XOCHITL MORELAND MD at 1429 CC: [id number] DICTATION DATE: 11/15/18 1514 HANDLE ROUNDER OPERATOR: 11/15/182007 ADM IN [facility] [address] [place] [address]
--- NOTE | 2018-11-16 18:18 | NUR ---
PT BECOMING AGGRESSIVE WITH STAFF DURING REDIRECTION WHEN PT IS ATTEMPTING TO STAND AND WALK ALONE DESPITE BEING UNSTEADY. STAFF 2X ATTEMPTING TO REDIRECT AND PT BEING UNCOOPERATIVE WITH STAFF. PT STATED "I'M NERVOUS" ATIVAN 0.5 MG IM GIVEN PER DR. PADILLA ORDER. PT TOLERATED WELL. CHAIR ALARM IN PLACE. WILL CONT TO MONITOR Q 15 MINS FOR SAFETY.
[2018-11-16 20:53] VITALS: BP 146/79
--- NOTE | 2018-11-16 21:39 | NUR ---
PATIENT IS TALKATTIVE, IN GERICHAIR, TRIES TO GET OUT OF IT AT TIMES, COMPLIANT WITH MEDS, CAN MAKE NEEDS KNOWN, WILL FOLLOW POC
--- NOTE | 2018-11-17 09:30 | NUR ---
RECEIVED PATIENT IN DINING ROOM FOR B'FAST, ALERT, CALM, WEAK, UNSTEADY GAIT, REQUIRES FREQUENT RE-DIRECTION TO REMAIN SEATED, RESTLESS, ATTEMPTS TO DISROBE IN DAY AREA REQUIRING RE-DIRECTION. MEDS ADMIN PER ORDERS WITH COMPLETE COMPLIANCE NOTED. PRESENT FOR GROUP WITH VARYING LEVELS OF PARTICIPATION. CONT CURRENT POC.
[2018-11-17 09:34] VITALS: BP 147/89
--- NOTE | 2018-11-17 12:18 | PN ---
PATIENT:STEPHEN PERDOMO MEDICAL RECORD: [id number] LOCATION:[facility] ADMISSION DATE: 10/31/18 PROGRESS NOTE DATE OF SERVICE: 11/16/2018 SUBJECTIVE: The patient's case was discussed with staff. He has no new complaint. OBJECTIVE: The patient is in better behavioral control. He has limited insight about his condition, but has not been aggressive today. ASSESSMENT: Senile dementia of the Alzheimer's type with behavioral disturbances. PLAN: Current medicines have been reviewed and will be maintained. Long-term prognosis is guarded. TRANSINT:[id number] Voice Confirmation ID: [id number] DOCUMENT ID: [id number] XOCHITL MORELAND MD at 1218 CC: [id number] DICTATION DATE: 11/16/18 1551 METAL FABRICATING INSPECTOR: 11/17/18 0055 ADM IN [facility] [address] [place] [address]
[2018-11-17 19:52] VITALS: BP 163/78
--- NOTE | 2018-11-17 21:54 | NUR ---
PATIENT IS CONFUSED, EASILY AGITATED, ARGUMENTATIVE, COMPLIANT WITH MEDS, NO ADVERSE REACTION NOTED. WILL FOLLOW POC
[2018-11-18 07:00] VITALS: BP 118/71
--- NOTE | 2018-11-18 09:30 | NUR ---
RECEIVED PATIENT IN DINING ROOM FOR B'FAST, ALERT, RESTLESS, FREQUENTLY PLACES SELF ON FLOOR, NO AGGRESSION NOTED. MEDS ADMIN PER ORDERS WITH COMPLETE MED COMPLIANCE NOTED. PARTICIPATES IN GROUP DIRECTED. CONT POC DIRECTED.
--- NOTE | 2018-11-18 10:12 | PN ---
PATIENT:STEPHEN PERDOMO MEDICAL RECORD: [id number] LOCATION:[facility] ADMISSION DATE: 10/31/18 PROGRESS NOTE DATE OF SERVICE: 11/17/2018 SUBJECTIVE: The patient's case was discussed with staff. He has no new complaint. OBJECTIVE: The patient denies intent to harm himself or others. He is not sleeping very well. He has been less aggressive with the staff. ASSESSMENT: Senile dementia of the Alzheimer's type with behavioral disturbances. PLAN: The patient's Klonopin is going to be changed to 1 mg at bedtime and 0.5 mg in the morning. His long-term prognosis is guarded. TRANSINT:[id number] Voice Confirmation ID: [id number] DOCUMENT ID: [id number] XOCHITL MORELAND MD at 1012 CC: [id number] DICTATION DATE: 11/17/18 1232 DETECTIVE AUTOMOBILE SECTION: 11/17/18 1326 ADM IN [place] [address] [place] [address]
[2018-11-18 19:13] VITALS: BP 110/72
--- NOTE | 2018-11-19 07:30 | NUR ---
PT IS VERY CONFUSED, HAS POOR INSIGHT INTO HIS SITUATION. PT IS PLEASANT AT THIS TIME. PT VERY HARD TO REDIRECT AT TIMES. UNSTEADY AND TRIES TO WALK WITHOUT ASSISTANCE. CHAIR ALARM IN PLACE. MED COMPLIANT. FALL PRECAUTIONS IN PLACE. WILL CPOC.
[2018-11-19 10:22] VITALS: BP 117/64
--- NOTE | 2018-11-19 10:52 | NUR ---
Nutrition Follow Up: Regular diet with 46% average po intake Megace ordered Last BM 11/[address] following
--- NOTE | 2018-11-19 15:28 | PN ---
PATIENT:STEPHEN PERDOMO MEDICAL RECORD: [id number] LOCATION:[facility] ADMISSION DATE: 10/31/18 PROGRESS NOTE DATE OF SERVICE: 11/18/2018 SUBJECTIVE: The patient's case was discussed with staff. He has no new complaint. OBJECTIVE: The patient is in good behavioral control with poor insight about his condition. ASSESSMENT: Senile dementia of the Alzheimer's type with behavioral disturbances. PLAN: Brief supportive and educational interventions were made. Long-term prognosis is guarded. TRANSINT:[id number] Voice Confirmation ID: [id number] DOCUMENT ID: [id number] XOCHITL MORELAND MD at 1528 CC: [id number] DICTATION DATE: 11/18/18 1209 SENIOR IOS SOFTWARE ENGINEER: 11/18/18 1530 [place] [address]
[2018-11-19 20:22] VITALS: BP 116/76
--- NOTE | 2018-11-19 21:29 | NUR ---
RECEIVED IN HALLWAY OUTSIDE OF NURSES STATION. ATTEMPTING TO STAND WITHOUT ASSISTANCE. ALARM SOUNDING. RIPPING DECORATIONS OFF BULLETIN BOARD. RESISTIVE TO CARE. HITTING AND KICKING STAFF. PRN GEODON 20 MG IM GIVEN FOR AGITATION. RESTING WITH EYES OPEN AT THIS TIME. CONTINUE PLAN OF CARE.
--- NOTE | 2018-11-20 07:45 | NUR ---
PT IN RECLINING CHAIR BY NURSES STATION. PT IS RESTLESS AT THIS TIME. COOPERATIVE WITH ASSESSMENT. REDIRECT AND REORIENT NEEDED. MED COMPLIANT. CHAIR ALARM IN PLACE. FALL PRECAUTIONS IN PLACE. WILL CPOC.
[2018-11-20 08:15] VITALS: BP 151/64
--- NOTE | 2018-11-20 13:10 | NUR ---
SPOKE TO PT'S ABOUT PT'S BEHAVIOR AND DISCHARGE PLANNING. SHE HAS DECIDED TO PLACE THE PT INTO [facility]. ALL PAPERWORK FAXED TO FACILITY.
--- NOTE | 2018-11-21 03:00 | NUR ---
RECEIVED IN DAYROOM. RESTING IN RECLINER WITH EYES OPEN. CALM AND COOPERATIVE WITH CARE AND ASSESSMENT. NO AGITATION OR AGGRESSION. REDIRECT AND REORIENT NEEDED. RESTING WITH EYES OPEN AT THIS TIME. CONTINUE PLAN OF CARE.
--- NOTE | 2018-11-21 07:30 | NUR ---
REC'D PT IN RECLINING CHAIR. PT IS AWAKE AND ALERT TO PERSON ONLY. CALM AND COOPERATIVE WITH ASSESSMENT. MED COMPLIANT. REDIRECT AND REORIENT NEEDED. FALL PRECAUTIONS IN PLACE. NO AGGRESSION NOTED AT THIS TIME. WILL CPOC.
[2018-11-21 08:19] VITALS: BP 140/79
--- NOTE | 2018-11-21 16:38 | PN ---
PATIENT:STEPHEN PERDOMO MEDICAL RECORD: [id number] LOCATION:[facility] ADMISSION DATE: 10/31/18 PROGRESS NOTE DATE OF SERVICE: 11/19/2018 SUBJECTIVE: The patient's case was discussed with staff. He has no new complaint. OBJECTIVE: The patient has been somewhat restless today. He has pretty limited insight about his situation. He is generally tolerating his medications well. ASSESSMENT: No change in diagnoses. PLAN: Current medicines have been reviewed. I do not think they have had a full opportunity to become effective. His long-term prognosis is guarded. TRANSINT:[id number] Voice Confirmation ID: [id number] DOCUMENT ID: [id number] XOCHITL MORELAND MD at 1638 CC: [id number] DICTATION DATE: 11/19/18 170 PATTERNMAKER PLASTICS: 11/19/182018 ADM IN [facility] [address] [place] [id number]
--- NOTE | 2018-11-21 16:38 | PN ---
PATIENT:STEPHEN PERDOMO MEDICAL RECORD: [id number] LOCATION:[facility]112 ADMISSION DATE: 10/31/18 PROGRESS NOTE DATE OF SERVICE: 11/20/2018 SUBJECTIVE: The patient's case was discussed with staff. He has no new complaint. OBJECTIVE: The patient denies intent to harm himself or others. He tolerates his medicines well. Eye contact is fair. ASSESSMENT: Senile dementia of the Alzheimer's type with behavioral disturbances. PLAN: The patient is significantly better, much less aggressive, but unfortunately still quite impaired. TRANSINT:[id number] Voice Confirmation ID: [id number] DOCUMENT ID: [id number] XOCHITL MORELAND MD at 1638 CC: [id number] DICTATION DATE: 11/20/18 1452 CONSULTING MARINE ENGINEER: 11/20/18 1628 ADM IN [facility] [address] [place] [address]
[2018-11-21 20:04] VITALS: BP 119/78
--- NOTE | 2018-11-21 20:25 | NUR ---
RECEIVED IN DAYROOM. RESTING IN RECLINER WITH EYES CLOSED. RESPONDS TO VOICE. CALM AND COOPERATIVE WITH CARE AND ASSESSMENT. NO AGGRESSIVE BEHAVIORS THIS EVENING. NO AGITATION. REDIRECT AND REORIENT NEEDED. CONTINUES TO REST IN RECLINER WITH EYES CLOSED AT THIS TIME. CONTINUE PLAN OF CARE.
--- NOTE | 2018-11-22 07:00 | NUR ---
NIGHT NURSE REPORTED THAT PATIENT TORE THE DECORATIONS FROM THE BULLETIN BOARD IN HALLWAY NEAR NURSES DESK.
--- NOTE | 2018-11-22 09:12 | NUR ---
RECEIVED PATIENT IN DINING ROOM FOR B'FAST, ALERT, RESTLESS, QUITE CONFUSED, RESTING IN RECLINER, EXTENDING LEGS ABOVE HEAD, DISROBING, DIFFICULT TO RE-DIRECT. MEDS ADMIN PER ORDERS WITH COMPLETE COMPLIANCE NOTED. PT CONT TO BECOME AGITATED WITH RE-DIRECTION. QUITE STRONG-WILLED. CONT POC INCLUDING MEDS AND GROUP THERAPY DIRECTED.
--- NOTE | 2018-11-22 15:31 | PN ---
PATIENT:STEPHEN PERDOMO MEDICAL RECORD: [id number] LOCATION:[facility]112 ADMISSION DATE: 10/31/18 PROGRESS NOTE DATE OF SERVICE: 11/21/2018 SUBJECTIVE: The patient's case was discussed with staff. He has no new complaint. OBJECTIVE: The patient denies intent to harm himself or others. He is quite confused and impaired. He has very limited insight about his situation. ASSESSMENT: Vascular dementia. PLAN: The patient will be treated with trazodone to assist with sleep consolidation. His long-term prognosis is guarded. Supportive and educational interventions were made. TRANSINT:[id number] Voice Confirmation ID: [id number] DOCUMENT ID: [id number] XOCHITL MORELAND MD at 1531 CC: [id number] DICTATION DATE: 11/21/181716 ROLLER STITCHER: 11/21/18 2247 ADM IN [place] [address] [place] [address]
--- NOTE | 2018-11-22 17:02 | NUR ---
ASSISTED TO BATHROOM PER STAFF, PATIENT UNCOOPERATIVE WITH STAFF, ATTEMPTED TO HEAD-BUT STAFF MEMBER MULTIPLE TIMES.
--- NOTE | 2018-11-22 17:06 | NUR ---
PATIENT REFUSES TO KEEP WILIAN ALARM IN CHAIR, REMOVES IT SOON IT IS PLACED. DIFFICULT TO RE-DIRECT ONCE HE DECIDES TO DO SOMETHING. RESTING IN RECLINER AT THIS TIME, EXTENDING LEG UP AND KICKING WALL.
--- NOTE | 2018-11-22 17:14 | NUR ---
PATIENT REFUSES TO KEEP WILIAN ALARM IN CHAIR AND REFUSES TO REMAIN SEATED, VERY UNSTEADY GAIT REQUIRING ONE-ON-ONE STANDBY ASSIST WITH AMBULATION.
--- NOTE | 2018-11-22 17:50 | NUR ---
RESTING IN RECLINER YELLING ALOUD, "LET'S GO TO THE MOVIE!"
--- NOTE | 2018-11-22 18:30 | NUR ---
PT. AGITATED AND COMBATIVE, HITTING AT STAFF. ATIVAN 0.5 MG TAB ADMIN PO FOR ANXIETY. DINAH WELL.
[2018-11-22 19:51] VITALS: BP 143/65
--- NOTE | 2018-11-23 04:49 | NUR ---
B) Patient is alert and oriented to self, very confused and misunderstands, restless, resistant to redirection, I) Administered scheduled medications crushed, monitored for safety, redirected as needed, patient showered this shift, R) Mediation compliant, shower put him to sleep, resting in hallway for safety P) Continue plan of care.
[2018-11-23 09:21] VITALS: BP 98/65
--- NOTE | 2018-11-23 10:09 | NUR ---
RECEIVED PATIENT IN DINING ROOM FOR B'FAST, ALERT, CALM AT THIS TIME, REQUIRES FREQUENT RE-DIRECTION TO NOT AMBULATE WITHOUT ASSISTANCE, NO AGGRESSION NOTED. MEDS ADMIN PER ORDERS WITH COMPLETE MED COMLIANCE NOTED. COOPERATIVE WITH GROUP, ALTHOUGH LIKES TO SLIDE OUT OF CHAIR AT TIMES. CONT VERY CONFUSED. CONT POC INCLUDING MEDS AND GROUP THERAPY DIRECTED.
[2018-11-23] MEDS ORDERED: DESERYL PO (11:32)
[2018-11-23] MEDS ORDERED: GEODON20 MG PO (11:32)
[2018-11-23] MEDS ORDERED: KLONOPIN0.5 MG PO (11:32)
[2018-11-23] MEDS ORDERED: GABAPENTIN100 MG PO (11:32)
[2018-11-23] MEDS ORDERED: ACETAMINOPHEN325 MG PO (11:32)
[2018-11-23] MEDS ORDERED: KLONOPIN1 MG PO (11:32)
[2018-11-23] MEDS ORDERED: SENNA8.6 MG PO (11:33)
[2018-11-23] MEDS ORDERED: MEGACE40 MG PO (11:33)
[2018-11-23] MEDS ORDERED: LIDODERM 5 %1 PATCH TRANSDERM (11:33)
[2018-11-23] MEDS ORDERED: VITAMIN D5000 UNIT PO (11:33)
[2018-11-23] MEDS ORDERED: VITAMIN B-121000 MCG PO (11:34)
--- NOTE | 2018-11-23 12:02 | PN ---
PATIENT:STEPHEN PERDOMO MEDICAL RECORD: [id number] LOCATION:[facility] ADMISSION DATE: 10/31/18 PROGRESS NOTE DATE OF SERVICE: 11/22/2018 SUBJECTIVE: The patient's case was discussed with staff. He has no new complaint. OBJECTIVE: The patient is calmer today. He has not been agitated. ASSESSMENT: Vascular dementia. PLAN: The patient is severely impaired cognitively. He has been [facility]. I anticipate he can be transitioned there after sometime after the weekend. TRANSINT:[id number] Voice Confirmation ID: [id number] DOCUMENT ID: [id number] XOCHITL MORELAND MD at 1202 CC: [id number] DICTATION DATE: 11/22/18 1548 VENEER REDRIER: 11/22/18 1557 ADM IN [place] [address] [place] [address]
--- NOTE | 2018-11-23 13:51 | NUR ---
PERSONAL BELONGINGS RETURNED TO PATIENT. REPORT CALLED TO [facility] LIST FAXED TO RECEIVING FACILITY AND HARD COPY SENT WITH PATIENT. PATIENT ALERT AND CALM AND IN PLEASANT MOOD. ASSISTED TO HALFWAY VAN PER STAFF AND HALFWAY TRANSPORT AID. PATIENT DISCHARGED FROM UNIT.
--- NOTE | 2018-11-24 10:20 | PN ---
PATIENT:STEPHEN PERDOMO MEDICAL RECORD: [id number] LOCATION:[facility]112 ADMISSION DATE: 10/31/18 PROGRESS NOTE DATE OF SERVICE: 11/23/2018 SUBJECTIVE: The patient's case was discussed with staff. He has no new complaint. OBJECTIVE: The patient is much calmer. He is very appropriate, but clearly severely impaired. He has not been aggressive. ASSESSMENT: Vascular dementia. PLAN: The patient will be transitioned out of the hospital today. He will be going to a behavioral senior living. His long-term prognosis is guarded. TRANSINT:[id number] Voice Confirmation ID: [id number] DOCUMENT ID: [id number] XOCHITL MORELAND MD at 1020 CC: [id number] DICTATION DATE: 11/23/18 1228 FOOD SERVICE MANAGER: 11/23/18 1311 DIS IN 11/23/18 [facility] [address] [place] [address]
--- NOTE | 2018-11-27 12:44 | DS ---
PATIENT:STEPHEN PERDOMO :39 MEDICAL RECORD: [id number] DISCHARGE SUMMARY ADMISSION DATE: 10/31/18 DISCHARGE DATE: 11/23/18 IDENTIFYING DATA: The patient is 83 years old. He is known to me from previous clinical contact. The patient has a known history of dementia, and he has been treated at this facility at least 2 previous times. His has him at home, although in the past we placed him in a group home and then she has taken him out of the group home to try to manage him at home and it just simply has not worked. On this occasion, he has been increasingly agitated, hitting the kumari, hitting tables and she is frightened of him. She says he has not actually attacked her, but she is still afraid. The patient has almost no recollection of these events. He has an advanced dementia. HOSPITAL COURSE: The patient was admitted to the hospital and fully evaluated from both a medical, psychological, and social standpoint. He was treated with mood stabilizing and memory enhancing medications and gradually showed improvement through the course of his hospitalization. In consultation with the , it was decided that the group home was the best option for them and he was placed at the [facility]. He was subsequently discharged. DISCHARGE DIAGNOSES: AXIS I: Vascular dementia. AXIS II: None. AXIS III: Previous stroke, constipation, hyperlipidemia, benign prostatic hypertrophy. AXIS IV: Moderate. AXIS V: Global assessment of functioning is 35. PLAN: At the time of discharge, the patient was in good behavioral control with no thoughts of harming himself or others. He was tolerating his medicines well. Followup is to be with his primary care group home physician. TRANSINT:[id number] Voice Confirmation ID: [id number] DOCUMENT ID: [id number] XOCHITL MORELAND MD at 1244 CC: [id number] DICTATION DATE: 11/26/18 1450 ECHOCARDIOGRAPHER: 11/27/18 0454 DIS IN 11/23/18 [facility] [address] [place] [id number]
--- NOTE | 2018-12-14 12:48 | PN ---
PATIENT:STEPHEN PERDOMO MEDICAL RECORD: [id number] LOCATION:[facility]112 ADMISSION DATE: 10/31/18 PROGRESS NOTE DATE OF SERVICE: 11/05/2018 SUBJECTIVE: Mr. Perdomo is an 83-year-old male who was admitted after becoming paranoid, aggressive with his at home. He continues to be so yesterday requiring multiple p.r.n. of Ativan and throwing chairs. Today, he was calm on interview clearly confused. Alert and oriented times 1 only for me, eating 5, 5, and 50% very small gentleman slept 5.25 hours. OBJECTIVE: VITAL SIGNS: 97.5, 106, 18, 133/78, and 98%. ASSESSMENT: Unchanged. PLAN: Continue present management. Geodon was recently increased from 20 at bedtime to 20 b.i.d. Case discussed with nursing, chart reviewed. The patient interviewed. TRANSINT:[id number] Voice Confirmation ID: [id number] DOCUMENT ID: [id number] ALIA REYES MD at 1248 CC: [id number] DICTATION DATE: 11/05/18 1314 FACILITY ENGINEER: 11/05/183 DIS IN 11/23/18 [facility] [address] [place] [address]
== END 2018-11-23 13:55 | DRG 57 ==
LOC: D.ER 09:30 → D.EDHOLD 13:55 → D.PSYCH 13:55
PROVIDERS: Family Medicine; ADMIT Psychiatry & Neurology Psychiatry; ATTEND Psychiatry & Neurology Psychiatry
DX: I69.319 Unspecified symptoms and signs involving cognitive functions following cerebral infarction (principal); F01.51 Vascular dementia, unspecified severity, with behavioral disturbance; N39.0 Urinary tract infection, site not specified; K59.00 Constipation, unspecified; E78.5 Hyperlipidemia, unspecified; N40.0 Benign prostatic hyperplasia without lower urinary tract symptoms; F32.9 Major depressive disorder, single episode, unspecified; I25.10 Atherosclerotic heart disease of native coronary artery without angina pectoris; G47.00 Insomnia, unspecified; E55.9 Vitamin D deficiency, unspecified; K21.9 Gastro-esophageal reflux disease without esophagitis; E53.8 Deficiency of other specified B group vitamins; M25.519 Pain in unspecified shoulder; R63.0 Anorexia; Z68.21 Body mass index [BMI] 21.0-21.9, adult; I10 Essential (primary) hypertension

== ENCOUNTER 2018-12-06 18:21 | Emergency (ER) | payer MEDICARE, OTHER ==
[~2018-12-06] VITALS: Ht 167.6 cm; Wt 1.5 kg
[~2018-12-06 18:21] MED LIST changes: +DESERYL PO; +GABAPENTIN100 MG PO; +KLONOPIN0.5 MG PO; +KLONOPIN1 MG PO; +LIDODERM 5 %1 PATCH TRANSDERM; +MEGACE40 MG PO; +SENNA8.6 MG PO
[2018-12-06 18:22] VITALS: Ht 167.6 cm; Wt 1.5 kg
[2018-12-06 20:29] LABS: BASOPHILS 0.3 % (0-2); EOSINOPHILS 0.3 % (0-7); HEMATOCRIT 39.6 % (42.0-54.0); HEMOGLOBIN 13.6 g/dL (13.5-17.5); IMMATURE GRANULOCYTES 0.2 % (0-5); LYMPHOCYTES 11.2 % (15-50); MCH 31.8 pg (26.0-34.0); MCHC 34.3 g/dL (31.0-37.0); MCV 92.5 fL (80.0-100.0); MEAN PLATELET VOLUME 10.6 fL (7.4-10.4); MONOCYTES 5.8 % (2-11); NEUTROPHILS 82.2 % (40-80); PLATELET COUNT 250 10x3/uL (130-400); RBC 4.28 10x6/uL (4.20-6.10); RDW 13.6 % (11.5-14.5); WBC 11.5 10x3/uL (4.8-10.8)
[2018-12-06 20:59] LABS: INR 1.11 (0.85-1.17); PROTIME 13.8 SECONDS (11.6-15.0)
[2018-12-06 21:19] LABS: ALKALINE PHOSPHATASE 53 U/L (46-116); ALT (SGPT) 22 U/L (10-68); CALC OSMOLALITY 294 mosm/kg (275-300); CALCIUM 9.5 mg/dL (8.5-10.1); CARBON DIOXIDE 27.1 mmol/L (21.0-32.0); CHLORIDE - SERUM 108 mmol/L (98-107); GLUCOSE 105 mg/dL (74-106); POTASSIUM - SERUM 3.4 mmol/L (3.5-5.1); PROTEIN - SERUM 6.9 g/dL (6.4-8.2); SODIUM 145 mmol/L (136-145); UREA NITROGEN 28 mg/dL (7-18); eGFR NON AFRICAN AMERICAN 76 mL/min (90-120)
[2018-12-06 23:50] VITALS: BP 143/81
== END 2018-12-06 23:50 | disposition other institution (70) ==
LOC: D.ER 18:21
PROVIDERS: Family Medicine
DX: F03.90 Unspecified dementia, unspecified severity, without behavioral disturbance, psychotic disturbance, mood disturbance, and anxiety (principal); I60.9 Nontraumatic subarachnoid hemorrhage, unspecified; W18.30XA Fall on same level, unspecified, initial encounter; Y93.89 Activity, other specified; Y92.019 Unspecified place in single-family (private) house as the place of occurrence of the external cause